=== PATIENT | female | born 1945 | race Caucasian/White ===

== ENCOUNTER 2016-08-06 03:10 | Inpatient (IN) | payer MEDICARE, BC ==
--- NOTE | ~2016-08-06 | DS ---
Discharge Summary [facility] [place] [address] [place]. [address] NAME: MASSIMO TOUSSAINT : 47 STATUS : DIS IN PAT#: [id number] AGE: 71 ADM/REG DATE : 08/06/16 MR#: [id number] REPORT SERV DATE: 08/24/16 DICTATED BY: ELIUD BEGUM DATE: 08/23/16 REPORT STATUS : Draft TRANSCRIBED BY: MEDARDO DATE: 08/23/16 Data Collection from hospitalization DISCHARGE DIAGNOSIS(ES): 1. Iqw-QI-iaygfbiju myocardial infarction. 2. Multi-vessel coronary artery disease, status post coronary artery bypass grafting. 3. Type 2 diabetes mellitus. 4. Debility. 5. History of spina bifida. 6. History of breast cancer status post bilateral mastectomy. 7. Chronic obstructive pulmonary disease. 8. Obesity. 9. Anxiety. 10.Chronic dysphagia. 11.History of myocardial infarction. CONSULTATIONS: Arnaud Olson Jr, MD; Edd Mcgee M.D. PROCEDURES PERFORMED: 1. Cardiac catheterization, 08/06/2016. 2. Median sternotomy, extracorporeal circulation. 3. Urgent coronary artery bypass grafting x3 with RODGERS to the LAD, reverse greater saphenous vein graft to the obtuse marginal #1, reverse saphenous vein graft to the posterior descending artery. 4. Transesophageal echocardiogram. 5. Endoscopic vein harvest from the right leg. 6. Sternal plating with Biomet SternaLock Mathieu, Prevena, 08/10/2016. 7. Carotid blood flow study, 08/09/2016. 8. Vein mapping of the bilateral lower extremities, 08/09/2016. 9. CT scan of the chest without contrast, 08/09/2016. MEDICATIONS: Vitamin C 1000 mg twice a day, aspirin 81 mg daily, Lipitor 40 mg daily, Cymbalta 30 mg daily, Duragesic 50 mcg topically every 72 hours, Neurontin 300 mg three times a day, Dilaudid 2 mg twice a day, Levemir FlexPen as instructed, NovoLog FlexPen as instructed, Hiprex 1 g twice a day, Lopressor 12.5 mg every 12 hours, Prilosec 20 mg at bedtime, MiraLAX powder one packet daily, Nolvadex 20 mg daily, oral zinc 220 mg daily, Tylenol 650 mg every four hours as needed, Mylanta 30 mL every four hours as needed, Xanax 0.5 mg three times a day as needed, Dulcolax 10 mg per rectum as needed, dextrose 25 mL IV as needed, glucagon as instructed, glucose tablets three tablets as needed, milk of magnesia 30 mL at bedtime as needed, Movantik 25 mg at 9 a.m. as needed, nitroglycerin 0.4 mg sublingually every five minutes as needed and as instructed, Roxicodone as instructed, Flomax one tablet twice a day, Macrobid 100 mg twice a day, Movantik 25 mg daily as needed, lisinopril 2.5 mg daily. CONDITION AT DISCHARGE: Stable. DISPOSITION: The patient was discharged to [facility] on an 1800-calorie cardiac/diabetic diet with activities as instructed. She would follow up with Dr. Puga Discharge Summary [address] [address] NAME: MASSIMO TOUSSAINT : 47 STATUS : DIS IN PAT#: [id number] AGE: 71 ADM/REG DATE : 08/06/16 MR#: [id number] REPORT SERV DATE: 08/24/16 DICTATED BY: ELIUD BEGUM DATE: 08/23/16 REPORT STATUS : Draft TRANSCRIBED BY: MEDARDO DATE: 08/23/16 Arely one month following discharge. She would follow up with me four weeks following discharge. HOSPITAL COURSE: This is a 71-year-old female, who has a very complex past medical history. She presented to the hospital and was found to have elevated troponin, chest pain, ischemic ECG, and dyspnea. The patient was seen by Dr. Edd Mcgee. He last saw the patient one year ago at the [facility]. The patient has very severe chronic debility in the setting of spina bifida. She has had multiple spine surgeries in the past. She has a walker and is wheelchair dependent. She does have chronic pain syndrome and is on high dose of Dilaudid and fentanyl. She is a breast cancer survivor since 2012. She has a history of COPD and some chronic dyspnea. The patient suffered a way-UO-msodfgdhq myocardial in 2013 that her nuclear cardiac stress test was negative in February of 2016 with an ejection fraction of 65% and moderate left ventricular hypertrophy. Over past two weeks, she has had severe progressive dyspnea. She was diagnosed with bronchitis and treated with unknown antibiotic medications. She developed both exertional and nonexertional severe substernal chest pressure over the past week with minimal activity and radiation to both arms. She saw her primary care physician and underwent a steroid injection into the joints of both hands. Three days prior to this admission, she noticed that her sugars are being going up more than 300. She presented to the emergency room and was found to have elevated troponin of 1.9 and a glucose of 310. It was felt that she would need to undergo a cardiac catheterization. She was admitted to the hospital for further evaluation and treatment. Upon admission, she was started on intravenous heparin. She denied any recent lower extremity edema, palpitations, or syncope. She does have chronic debility and chronic pain syndrome. We would follow her cardiac enzymes closely and get an echocardiogram. She was taken to the cardiac hatchery laborer by Dr. Jennifer Martínez where she underwent the above- mentioned procedure. She tolerated this well and there were no complications. She was found to have severe multivessel coronary artery disease including a 90-95% tubular ostial stenosis of the LAD with sequential 40-50% stenosis distally and also 99% ostial stenosis of the left circumflex with 95% ostial stenosis to the superior branch. Her RCA was a medium caliber vessel with 60% midvessel stenosis. Her ejection fraction on a stress test in 2016 was around 65%. It was felt that she would need to undergo coronary artery bypass grafting. She has had a yoz-EV-daleuwhmh myocardial infarction. She was seen in consultation by Dr. Arnaud Olson Jr, regarding medical management, glycemic control, and bronchitis. The patient has a history of spina bifida and has had corrected spine surgery for repair of the spina bifida. She also had cervical spine surgery from which she has suffered chronic dysphagia. She does have swallow precautions. The patient said about three weeks previously, she had developed chest pain and shortness of breath with exertion. She also had a cough initially with white phlegm. About one week prior to this admission, she developed blood in the sputum and had gone to her primary care provider and had been given antibiotics and Mucinex. She did improve some; however, she continued to have chest pain and shortness of breath with exertion. The hemoptysis resolved in the interim. She said that her breathing was now better. She says that she coughs when she eats some time. Her troponin I had been 5.45. She was felt to have poorly controlled type 2 diabetes mellitus. She was on Lantus and sliding scale insulin. Sliding scale insulin was increased to level 2. Hemoglobin A1c was going to be checked and we would adjust her basal insulin as needed. The following day, she had no chest pain or dyspnea. She was transferred to the cardiac Discharge [address] [address] NAME: MASSIMO TOUSSAINT : 47 STATUS : DIS IN PAT#: [id number] AGE: 71 ADM/REG DATE : 08/06/16 MR#: [id number] REPORT SERV DATE: 08/24/16 DICTATED BY: ELIUD BEGUM DATE: 08/23/16 REPORT STATUS : Draft TRANSCRIBED BY: MEDARDO DATE: 08/23/16 floor. Echocardiogram was performed. She was evaluated by Physical Therapy. She had no new complaints. On the , she had no dyspnea or chest pain. She was in a sinus rhythm. Echocardiogram revealed ejection fraction 55% and mild mitral regurgitation. Levemir was increased as well as Aspart. Hemoglobin A1c was 7.6. Speech/Language Pathology performed a bedside swallow study. Aspiration precautions were in place. On the , she underwent a carotid blood flow study as well as vein mapping of the bilateral lower extremities. CT scan of the chest without contrast was also performed. Blood pressure was controlled. Levemir was continued as well as level 2 sliding scale insulin. Aspart was discontinued. On 09/07/2016, she was taken to the operating room where she underwent the above-mentioned procedure. She tolerated this well. There were no complications. On postop day #1, she complained of pain. She remained on an insulin drip. IV medication was given for her severe pain. She was in a normal sinus rhythm. She had no fevers or chills. The next day, she still complained of pain. Creatinine level was 0.8. We encouraged her to increase her activity. Levemir dose was increased. Macrobid was stopped. She continued to progress. She seemed to be doing better. She was up sitting in a chair. She was more alert. It was felt that she would need long rehabilitation. She said she was sleeping well. Levemir was increased. She was re-evaluated by Physical Therapy. She did complain of some sternotomy pain. She had trace lower extremity edema. Aspirin, Plavix, and atorvastatin were continued. Discharge planning was performed. She was mobilizing well. She was going to remain on Plavix for life. She was ambulating with cardiac rehab. MANJU inhibitor was added. On 08/17/2016, her evening Levemir was decreased. She had no new issues. She said she felt well. She had no chest pain. Discharge instructions were given. Due to her improved and stable condition, she was discharged to [facility] with the above-stated instructions. Information collected by: Diane Mendoza I submit the above information as my discharge summary. TG/MODRocio Eliud Begum MD / [id number] CC: Lenora Tapia MD
--- NOTE | ~2016-08-06 | CN ---
Consultation Report [facility] [address] [place]. [address] NAME: MASSIMO TOUSSAINT : 47 STATUS : ADM Junior PAT#: [id number] AGE: 71 ADM/REG DATE : 08/06/16 MR#: [id number] REPORT SERV DATE: 08/06/16 DICTATED BY: HARSHA CROFT DATE: 08/06/16 REPORT STATUS : Draft TRANSCRIBED BY: MODL DATE: 08/06/16 CONSULT REPORT DATE OF CONSULTATION: 08/06/2016 REASON FOR CONSULTATION: Multivessel coronary artery disease. REQUESTING PHYSICIAN: Jennifer Martínez M.D. HISTORY OF PRESENT ILLNESS: This is a pleasant 71-year-old female with complicated past medical history including coronary artery disease, possible COPD, type 2 diabetes mellitus, chronic dysphagia, and spina bifida with chronic disability. She also has a history of chronic upper extremity myelopathy and is wheelchair bound. She was admitted early this morning with chest pain, abnormal EKG, and dyspnea. Her troponin was mildly elevated around 1.9, but came back later at 5.5. She was taken for cardiac catheterization and found to have severe multivessel coronary artery disease including a 90-95% tubular ostial stenosis of the LAD with sequential 40-50% stenosis distally, was also at 99% ostial stenosis to her left circ with a 95% ostial stenosis to the superior branch. Her RCA is a medium caliber vessel with a 60% midvessel stenosis. No mention of ejection fraction, but ejection fraction per stress test in 2016, was around 65%. I spoke with Dr. Martínez over the phone regarding the plan of care and CT surgery was consulted for evaluation of CAB and a chronically ill and debilitated 71-year-old female. Currently, the patient is recovering from cardiac catheterization with no complaints of chest pain or shortness of breath while she is at rest. Her sister is with her at the bedside. PAST MEDICAL HISTORY: Significant for chronic pain syndrome, spina bifida with chronic debilitation, CAD likely COPD with obstructive sleep apnea and chronic exertional dyspnea, chronic dysphagia, type 2 diabetes mellitus, anxiety, obesity, breast cancer, status post bilateral mastectomy in 2012. PAST SURGICAL HISTORY: Bilateral mastectomy. FAMILY HISTORY: Reviewed and noncontributory. SOCIAL HISTORY: She is single. She lives with her niece. Denies any history of alcohol abuse, use of illicit drugs, or tobacco. ALLERGIES: SHE HAS MULTIPLE MEDICATION ALLERGIES INCLUDING TRICYCLIC COMPOUNDS, HYDANTOINS, NSAIDS, SULFA, STATINS, NIACIN, LORAZEPAM, PHENYTOIN, CARBAMAZEPINE, LEVOTHYROXINE, METHYLPREDNISONE, KETOPROFEN, AMITRIPTYLINE, NORTRIPTYLINE, TRAZODONE, SERTRALINE, KETOROLAC, PREGABALIN, MORPHINE, AND ADHESIVES. HOME MEDICATIONS: Xanax 0.5 mg p.o. three times a day as needed, amlodipine 5 mg p.o. twice a day, aspirin 81 mg per day, carvedilol 6.25 mg p.o. b.i.d., vitamin D 5000 units p.o. Consultation Report [address] [address] NAME: MASSIMO TOUSSAINT : 47 STATUS : ADM Junior PAT#: [id number] AGE: 71 ADM/REG DATE : 08/06/16 MR#: [id number] REPORT SERV DATE: 08/06/16 DICTATED BY: HARSHA CROFT DATE: 08/06/16 REPORT STATUS : Draft TRANSCRIBED BY: MEDARDO DATE: 08/06/16 daily, Cymbalta 30 mg p.o. daily, Duragesic patch 50 mcg topically every 72 hours, Diflucan 100 mg p.o. daily, fluticasone two sprays daily, Monurol 3 g per day, Neurontin 300 mg p.o. three times a day, Dilaudid 2 mg p.o. twice a day, NovoLog FlexPen per sliding scale, Levemir FlexPen 40 units subcu every morning and 50 units at bedtime, Prinivil 40 mg per day, magnesium chloride 64 mg per day, Hiprex 1 g p.o. twice a day, nitrofurantoin 100 mg p.o. twice a day as long-term therapy, Prilosec 20 mg p.o. daily, MiraLAX one packet p.o. daily, potassium chloride 10 mEq p.o. daily, tamoxifen 20 mg p.o. daily, and Movantik 25 mg p.o. daily as needed for constipation. REVIEW OF SYSTEMS: 12-point review of systems was obtained and is negative other than HPI. PHYSICAL EXAMINATION: VITAL SIGNS: From today; temperature 97.9, heart rate 66, blood pressure 127/61, respiratory rate 19, O2 saturation 97% on 2 L. GENERAL: Pleasant, obese female, in no acute distress. NEUROLOGIC: Alert and oriented x3. Pupils exhibit PERRLA. Generalized weakness worse in bilateral lower extremities, but significant weakness in bilateral upper extremities as well. LUNGS: Clear to auscultation bilaterally with normal effort. CARDIAC: S1, S2 with no murmurs, rubs, or gallops. ABDOMEN: Obese and nontender with active bowel sounds. EXTREMITIES: Free of cyanosis, clubbing, or edema. Pedal pulses present and equal bilaterally. LABORATORY DATA: White blood cell count 7.9, hemoglobin 10.5, hematocrit 32, platelets 150. Sodium 139, potassium 4.1, chloride 104, bicarbonate 23, BUN 13, creatinine 0.8, glucose 310. ASSESSMENT AND PLAN: This is a pleasant, but chronically debilitated, 71-year-old female with multiple comorbidities who was admitted with a blu-MU-bclnyfldv myocardial infarction and found to have three-vessel coronary artery disease as mentioned above, which seems to be amenable to coronary artery bypass grafting. I discussed the risk and benefits of surgery with her as well as risk scores as she has risk stratification for her and this particular surgery include overall mortality of 2.3% of morbidity and mortality of 16.8%, what I am not able to calculate is the patient's chronic debilitated state and there was concern that surgery could indeed make this worse. I discussed the possibility of prolonged hospitalization and even prolonged jail care with her and she would like to talk with her family prior to deciding about surgery. She would also like a chance to talk with Dr. Fonseca and I will arrange this afternoon after he has finished with surgery. For now, we will continue her supportive care. I updated Jannette Rinaldi, nurse practitioner, that the patient will return to [facility] after she is recovered from her cardiac catheterization. We would like to thank you for the consultation and look forward to participating in the care of Ms. Massimo Toussaint. Consultation Report [address] [address] NAME: MASSIMO TOUSSAINT : 47 STATUS : ADM Junior PAT#: [id number] AGE: 71 ADM/REG DATE : 08/06/16 MR#: [id number] REPORT SERV DATE: 08/06/16 DICTATED BY: HARSHA CROFT DATE: 08/06/16 REPORT STATUS : Draft TRANSCRIBED BY: VADIML DATE: 08/06/16 SEBASTIEN/MEDARDO Harsha Croft NP / [id number] CC: Lenora Tapia MD
--- NOTE | ~2016-08-06 | PRECARD ---
H&P [facility] [address] [facility] [place]. [address] NAME: MASSIMO TOUSSAINT : 47 STATUS : ADM Junior PAT#: [id number] AGE: 71 ADM/REG DATE : 08/06/16 MR#: [id number] REPORT SERV DATE: 08/06/16 DICTATED BY: ASHLEY FRANKLIN DATE: 08/06/16 REPORT STATUS : Draft TRANSCRIBED BY: MEDARDO DATE: 08/06/16 DATE OF ADMISSION: 08/06/2016 HISTORY OF PRESENT ILLNESS: The patient is 71 years old. The patient has a very complex past medical history, admitted to Cardiology Service last night for elevated troponin, chest pain, ischemic ECG, and dyspnea. I have seen this patient last time 1 year ago at the [facility]. The patient has severe chronic debility in the setting of spina bifida. Multiple spine surgeries in the past. She has a walker and wheelchair dependent. She is having chronic pain syndrome on high dose of Dilaudid and fentanyl. She also is a breast cancer survivor since 2012 and is followed by Dr. Worley. The patient has a history of COPD and some chronic dyspnea. She suffered a non-ST elevation VA in 2013, but her nuclear cardiac stress test was negative in 02/2016 with ejection fraction of 65% with moderate LVH. The patient reportedly over the last two weeks has severe progressive dyspnea. She was diagnosed with bronchitis and treated with unknown antibiotic medications and she also developed both exertional and nonexertional severe substernal chest pressure over the last week with minimal activity, radiating to both arms. She has seen a primary care physician and underwent a steroid injection into the joints of both hands, that is 3 days ago. She noted that her sugar has been going up more than 300. She presented to emergency room last night. Of note, she is single and lives with her extended family member. She was found to have elevated troponin 1.9 and glucose 310, was admitted to Cardiology Service. She still continues to have poorly defined, but less severe substernal chest pressure and mild dyspnea. She was started on intravenous heparin. The patient denied any lower extremity edema recently, palpitation or syncope. She has had chronic debility and chronic pain syndrome. She has been in the past several times in the [facility], but likely last time in 2013. PAST MEDICAL HISTORY: 1. Chronic dyspnea on exertion multifactorial etiology. 2. History of coronary artery disease with history of non-STEMI in 2014 and negative nuclear cardiac stress test for ischemia in 2016. 3. History of preserved systolic function with EF of 65% in 2016. She has moderate LVH. 4. Chronic debility, the patient is wheelchair bound. In the setting of spina bifida and multiple spine surgeries, and chronic upper extremity myelopathy. 5. History of bilateral mastectomy in 2012 for breast cancer followed by Dr. Worley. 6. Chronic dysphagia. 7. COPD. 8. Diabetes mellitus. 9. Obesity. 10.Anxiety. 11.History of ERCP in 1987. There are unknown results. SOCIAL HISTORY: The patient is single. She lives with her niece. She denies smoking, drinking, alcohol, or using street drugs. FAMILY HISTORY: Negative for sudden cardiac premature family. H&P [address] [address] NAME: MASSIMO TOUSSAINT : 47 STATUS : ADM Junior PAT#: [id number] AGE: 71 ADM/REG DATE : 08/06/16 MR#: [id number] REPORT SERV DATE: 08/06/16 DICTATED BY: ASHLEY FRANKLIN DATE: 08/06/16 REPORT STATUS : Draft TRANSCRIBED BY: MEDARDO DATE: 08/06/16 ALLERGIES: ALPRAZOLAM, AMITRIPTYLINE, KETOPROFEN, CARBAMAZEPINE, LORAZEPAM, SYNTHROID METHYLPREDNISOLONE, NSAIDS, NORTRIPTYLINE, PHENYTOIN, SERTRALINE, SULFA, TRAZODONE, TRICYCLIC, ANTI-DEPRESSANT. ALL OF THEM ARE LISTED ALLERGIES WITH UNKNOWN TYPE OF ALLERGY. HOME MEDICATIONS: Fentanyl patch 50 mcg/hour over 72 hours, hydromorphone 2 mg twice a day, slow magnesium 2 tablets in the morning and 2 in the evening, lisinopril 40 mg once a day, Amitiza as needed, tamoxifen 20 mg once a day, alprazolam 0.5 mg as needed, gabapentin 300 mg three times a day, aspirin 81 mg once a day, carvedilol 6.25 mg twice a day, fluoxetine 30 mg once a day, fluticasone as needed, insulin Levemir 50 units at bedtime and 40 units in the breakfast. PHYSICAL EXAMINATION: GENERAL: On physical exam elderly female chronically ill, in no acute distress. VITAL SIGNS: Blood pressure 153/64, heart rate 78, regular. LUNGS: Decreased breath sounds bibasilarly, but no crackles. ABDOMEN: Obese, distended, and nontender. HEART: S1, S2. No S3 or S4. LOWER EXTREMITIES: Decreased pedal pulses bilaterally, but no edema. GEN - No acute distress. Appears stated age. HEENT - Pupils reactive to light and accommodation. Moist mucosa membrane. NECK: No JVD. Normal carotid upstroke. No carotid bruits. COR: Normal S1, S2. No S3 or S4. No significant rub or murmurs. ABD: Soft, nontender, nondistended. EXT: No edema. Pedal pulses strong and equal bilaterally. SKIN: Warm with normal turgor. MS - No kyphosis. NEURO/PSY - Alert and oriented. Nonfocal. LABORATORY DATA: CBC remarkable for hemoglobin 10.5, glucose 310, electrolyte within normal limits. Troponin 1.9. Electrocardiogram revealed normal sinus rhythm at 83 beats per minute with signs of LVH. An old anteroseptal VA, which is unchanged, but new ischemic changes with [address]-segment depression in anterolateral leads. A chest x-ray is pending. ASSESSMENT AND PLAN: 1. Non ST elevation VA. 2. Dyspnea on exertion, acute on chronic with exertion of multifactorial etiology. 3. Chronic upper extremity myelopathy. There is a recent steroid injection. 4. Chronic debility. 5. Chronic pain syndrome. 6. Diabetes mellitus, poorly controlled. 7. History of breast cancer. 8. Spina bifida. Under the history, the patient has multiple medical problems. We will transfer her to monitor bed. We will continue with aspirin, beta-blockers, intravenous heparin, and MANUJ inhibitor. Based on the above, I am concerned that she may have H&P PRE [address] [address] NAME: MASSIMO TOUSSAINT : 47 STATUS : ADM Junior PAT#: [id number] AGE: 71 ADM/REG DATE : 08/06/16 MR#: [id number] REPORT SERV DATE: 08/06/16 DICTATED BY: ASHLEY FRANKLIN DATE: 08/06/16 REPORT STATUS : Draft TRANSCRIBED BY: MEDARDO DATE: 08/06/16 multivessel coronary artery disease, but due to the fact that she continues to have chest pain, we will plan to proceed with coronary arteriogram later today when her sugar will be better controlled. We will put her on sliding scale insulin and ask hospitalist to help us manage her multiple medical problems including recent bronchitis, pain syndrome for her chronic debility. We will also ask Physical Therapy to see her, she probably will need placement. We will plan for echocardiogram and follow her cardiac enzymes closely. She is full code. Multiple questions were answered. TYRA/VADIML Ashley Franklin M.D. / [id number] CC: Lenora Tapia MD
--- NOTE | ~2016-08-06 | OP ---
Record Of [facility] [address] [facility] [place]. [address] NAME: MASSIMO TOUSSAINT : 46 STATUS : ADM IN PAT#: [id number] AGE: 71 ADM/REG DATE : 08/06/16 MR#: [id number] REPORT SERV DATE: 08/10/16 DICTATED BY: ANDREE BEGUM DATE: 08/10/16 REPORT STATUS : Draft TRANSCRIBED BY: MODL DATE: 08/10/16 DATE OF PROCEDURE: 08/10/2016 REFERRING PHYSICIAN: Edd Mcgee M.D. SURGICAL DRESSING MAKER: Pawan Pike. ANESTHESIOLOGIST: Brendon Ybarra M.D. PREOPERATIVE DIAGNOSES: 1. Non-ST segment elevation myocardial infarction. 2. Three-vessel coronary artery disease. 3. Diabetes mellitus type 2. 4. Hypertension. 5. Spina bifida. 6. Chronic obstructive pulmonary disease. 7. Breast cancer. 8. Obesity. 9. Dysphagia. 10.Chronic debilitation. POSTOPERATIVE DIAGNOSES: 1. Non-ST segment elevation myocardial infarction. 2. Three-vessel coronary artery disease. 3. Diabetes mellitus type 2. 4. Hypertension. 5. Spina bifida. 6. Chronic obstructive pulmonary disease. 7. Breast cancer. 8. Obesity. 9. Dysphagia. 10.Chronic debilitation. OPERATION/PROCEDURE PERFORMED: 1. Median sternotomy. 2. Extracorporeal circulation. 3. Urgent coronary artery bypass grafting x3, left internal mammary artery, left anterior descending, reverse greater saphenous vein graft to obtuse marginal #1, reverse greater saphenous vein graft to posterior descending artery. 4. Transesophageal echo. 5. Endoscopic vein harvest of right leg. 6. Sternal plating with Biomet SternaLock Mathieu. 7. Prevena. COMPLICATIONS: None. Record Of [facility] [address] [facility] [place]. [address] NAME: MASSIMO TOUSSAINT : 46 STATUS : ADM IN PAT#: [id number] AGE: 71 ADM/REG DATE : 08/06/16 MR#: [id number] REPORT SERV DATE: 08/10/16 DICTATED BY: ANDREE BEGUM DATE: 08/10/16 REPORT STATUS : Draft TRANSCRIBED BY: MODL DATE: 08/10/16 POSTOPERATIVE CONDITION: Stable to CVICU. The patient was weaned from cardiopulmonary bypass on no inotropic support with atrial and ventricular pacing wires. Cross-clamp 69 was minutes, total cardiopulmonary bypass time was 86 minutes. TUBES: A 24-Marshallese Rolo to left pleural space. A 32-Marshallese straight anterior mediastinal chest tube. INTRAOPERATIVE FINDINGS: Nnamdi diffusely diseased coronary arteries, the vein was 5 to 6 mm, mammary was 2 mm. The superior division of the obtuse marginal #1 was totally intramyocardial, could not find the artery, looked for for approximately 15 minutes and dissecting out various portions of the myocardium could not find it. On transesophageal echo, there was trace MR, thick LVH. No AI. No . There was normal EF. There was preserved wall motion post bypass. DETAILS OF CARDIOPULMONARY BYPASS GRAFTIN. Grafts #1, RODGERS to left anterior descending was 1.75 mm extremely diffusely diseased target, very nnamdi disease circumferentially along the length of the LAD. 2. Graft #2, reverse greater saphenous vein graft to obtuse marginal #1. This was 2 mm. This was partially intramyocardial and was diffusely diseased. 3. Reverse greater saphenous vein graft to posterior descending artery. This was 1.75 mm with mild diffuse disease. All grafts had excellent pre and post protamine Doppler signals. DETAILS OF STERNAL PLATING: One 180 degree plate with four 14 mm screws was used in the manubrium. Two X plates with eight 14 mm screws were used, each on the body of the sternum. Eight sternal wires were placed in addition to the plates. INDICATION FOR PROCEDURE: The patient is a 71-year-old female with a long history of multiple medical problems with diffuse ostial LAD and circumflex disease. Risks, benefits, and alternatives were discussed with the patient including but not limited to, bleeding, infection, stroke, , heart attack, need for future operations. All questions were answered. STS risks were calculated and discussed with the patient. In addition, given the patient's chronic debilitation with spina bifida, prolonged postoperative course was discussed with the patient. She contemplated operation over the weekend and ultimately wanted to have coronary bypass. The patient was brought to the operating room. DESCRIPTION OF PROCEDURE: The patient was brought to the operating room and placed supine on the operating room table. After satisfactory induction of general endotracheal anesthesia, she was prepped and draped in the usual sterile fashion. Working simultaneously, endoscopic vein harvest was performed from the right leg and median sternotomy was performed. Skin and subcutaneous tissues were divided. Clavipectoral fascia was divided. The sternum was divided in the midline. Sternal retractor was placed. Thymic tissue was divided in the midline. Pericardium was opened in the midline and along the diaphragm. Targets were inspected, they were as mention in the findings. The Rultract retractor was placed and the internal mammary artery was harvested in a pedicle fashion from its takeoff from the subclavian vein to the bifurcation of the diaphragm. Systemic heparinization was achieved. After three minutes, the pedicle was clipped and divided at the bifurcation of the Record Of Operation [place] [id number] [facility] [place]. [address] NAME: MASSIMO TOUSSAINT : 46 STATUS : ADM IN [facility]#: [id number] AGE: 71 ADM/REG DATE : 08/06/16 MR#: [id number] REPORT SERV DATE: 08/10/16 DICTATED BY: ANDREE BEGUM DATE: 08/10/16 REPORT STATUS : Draft TRANSCRIBED BY: MEDARDO DATE: 08/10/16 diaphragm. It was infiltrated with papaverine. A 24-Marshallese Rolo was placed in the left pleural space and exteriorized. The Rultract retractor was removed. Sternal retractor was placed. Pericardial well was created. Ascending aortic cannulation was achieved through dual pursestring at the base of the innominate artery with a soft-flow cannula. A dual stage venous cannula was placed through pursestring in the right atrial appendage. Antegrade root vent cardioplegia tack was placed. Cardiopulmonary bypass was initiated after documentation of an adequate ACT. The targets were again inspected. The LAD was diffusely diseased. The obtuse marginal #1 was diffusely diseased and there was a diffuse disease in the right with a plaque at the origin of the PDA. The cross-clamp was brought up. Heart was arrested with cold antegrade cardioplegia for a total of 800 mL switching to intermittent aliquots every 15 to 20 minutes throughout the remainder of the cross clamp. The posterior descending artery was then bypassed with a reverse greater saphenous vein. The obtuse marginal #1 was then bypassed with a reverse greater saphenous vein graft, both of these were done with 8-0 Surgipro. The proximal grafts were then performed after creating a proximal aortotomy enlarging with a 4.5 mm punch, this was done with 6-0 Prolene. Vein markers were placed. The superior division of the obtuse marginal #1 was looked for for approximately 10 to 15 minutes. Various areas were scratched out on the heart, could not find the artery. Takeoff was very close to the AV groove and the obtuse marginal #1 was in the epicardial fat there and could not find the bifurcation. The mammary was then brought down through a wide V in the pericardium, it was cut to length and spatulated. The LAD was opened on what appeared to be a soft spot, however, it was diffusely diseased with posterior plaquing as well as some anterior plaquing. The LAD was anastomosed to the RODGERS using an 8-0 Surgipro. Bulldog was removed after completion of the anastomosis and there was excellent flow pre and post anastomosis and in the graft. Pedicle was tacked to the heart in two places and grafts were de-aired and cross-clamp was removed. Atrial and ventricular pacing wires were placed. The patient was able to be weaned from cardiopulmonary bypass. Protamine was administered. The patient was decannulated. All cannulation sites were oversewn with 4-0 Prolene. Hemostasis was achieved. The pericardium was loosely reapproximated over the ascending aorta and the right ventricle. The sternum was then reapproximated. Eight #6 sternal wires were used to close the sternum over a 32- Marshallese chest tube laid in the anterior mediastinum, this was exteriorized and anchored. After the sternum was reapproximated using the sternal wires, small pectoral flaps were established just to remove the pectoral muscle at the edge of the sternum. 180 degree plate was placed on the manubrium and secured with 14 mm screws. Two X plates were placed in between wires on the bottom of the sternum and secured with eight 14 mm screws a piece. Clavipectoral fascia was then reapproximated over the sternum using #1 StrataFix. The subcutaneous tissues were reapproximated using running #1 StrataFix. The skin and subcutaneous tissues were closed using 2-0 Quill. Prevena dressing was placed. The patient was transferred to CVICU in critical, stable condition. WMC/MODL Andree Begum MD Record Of Operation [address] [place]. [address] NAME: MASSIMO TOUSSAINT : 46 STATUS : ADM IN PAT#: [id number] AGE: 71 ADM/REG DATE : 08/06/16 MR#: [id number] REPORT SERV DATE: 08/10/16 DICTATED BY: ANDREE BEGUM DATE: 08/10/16 REPORT STATUS : Draft TRANSCRIBED BY: MODL DATE: 08/10/16 / [id number] CC: Andree Begum MD
--- NOTE | ~2016-08-06 | CN ---
Consultation Report [facility] [address] [place]. [address] NAME: MASSIMO TOUSSAINT : 46 STATUS : ADM IN PAT#: [id number] AGE: 71 ADM/REG DATE : 08/06/16 MR#: [id number] REPORT SERV DATE: 08/09/16 DICTATED BY: JR. OLSON WILLIAM JOHN DATE: 08/06/16 REPORT STATUS : Draft TRANSCRIBED BY: MEDARDO DATE: 08/06/16 DATE OF CONSULTATION: REASON FOR CONSULTATION: Medical management, glycemic control, bronchitis. HISTORY OF PRESENT ILLNESS: This is a 71-year-old white female, admitted by [facility] for chest pain, ischemic EKG changes, and elevated troponin. The patient was admitted by Dr. Mcgee with plan for cardiac catheterization. Today, I have been asked to assist with multiple medical problems as above. The patient has an extraordinarily long medical history. She has a history of spina bifida and has had corrective spine surgery for repair of spina bifida. She has also had a cervical spine surgery from which she has suffered chronic dysphagia. The patient has seen Speech and Language Pathology in the past and has swallow precautions. The patient says about three weeks ago, she developed chest pain and shortness of breath with exertion. She also had a cough, initially with white phlegm. About one week ago, she developed blood in the sputum and went to her primary care provider in [facility] and saw a nurse practitioner, named Kate, who gave her antibiotics and Mucinex. The patient improved some, however, she continued to have the chest pain and shortness of breath with exertion. The hemoptysis has resolved in the interim. She denies fevers currently. She says she is breathing better now. She does say she coughs when she eat sometimes. PAST MEDICAL HISTORY: Includes: 1. Spina bifida with repair. 2. Chronic debility, wheelchair-bound. 3. Coronary artery disease with a history of myocardial infarction in 2013. 4. History of C-spine surgery with chronic dysphagia since. 5. History of breast cancer, status post bilateral mastectomy in 2012, on tamoxifen. 6. Chronic dyspnea on exertion. 7. Reported history of COPD, although the patient denies this. 8. Diabetes mellitus type 2. 9. Left total hip replacement. 10.Bilateral total knee replacement. 11.History of nephrostomy tubes. 12.History of ileal conduit/cystectomy secondary to complications of spina bifida. 13.Obesity. 14.Anxiety. 15.Hysterectomy. 16.Cholecystectomy. 17.Bilateral carpal tunnel syndrome for which she has had steroid injection. MEDICATIONS: Include: 1. Duragesic 50 mcg strength changing every 72 hours. 2. Dilaudid 2 mg orally twice a day. Consultation Report [address] [place]. [address] NAME: MASSIMO TOUSSAINT : 46 STATUS : ADM IN PAT#: [id number] AGE: 71 ADM/REG DATE : 08/06/16 MR#: [id number] REPORT SERV DATE: 08/09/16 DICTATED BY: JR. OLSON WILLIAM JOHN DATE: 08/06/16 REPORT STATUS : Draft TRANSCRIBED BY: MEDARDO DATE: 08/06/16 3. Slow-Mag 2 g in the morning and in the evening. 4. Lisinopril 40 daily. 5. Tamoxifen 20 daily. 6. Neurontin 300 t.i.d. 7. Aspirin 81 daily. 8. Coreg 6.25 b.i.d. 9. Fluoxetine 30 daily. 10.Levemir 40 units in the morning and 50 units at night. ALLERGIES: XANAX, ELAVIL, KETOPROFEN, CARBAMAZEPINE, ATIVAN, SYNTHROID, METHYLPREDNISOLONE, NSAIDS, NORTRIPTYLINE, DILANTIN, SERTRALINE, SULFA, TRAZODONE, AND TRICYCLIC ANTIDEPRESSANTS. FAMILY HISTORY: Mother at age 48 of heart aneurysm. Father in his 60s of a myocardial infarction. SOCIAL HISTORY: Lives in [place] with her niece. She is single. She denies tobacco, alcohol, or illicit drugs. Used to work at [employer]. REVIEW OF SYSTEMS: Negative in all systems reviewed, except did admit to fevers and chills last week and headache for the last three days. Decreased visual acuity, sore throat, chest pain and shortness of breath as above, hemoptysis, diarrhea last week, cough as above. PHYSICAL EXAMINATION: VITAL SIGNS: Temperature 98.4, blood pressure 146/64, heart rate 79, respiratory rate 18. GENERAL: The patient was alert and oriented, in no acute distress. HEENT: Her pupils were equal, round, and reactive to light. Extraocular motions were intact. Sclerae were anicteric. Oropharynx was clear. NECK: Supple. There was no jugular venous distention, thyromegaly, or bruits. LUNGS: Clear to auscultation without crackles or wheezes. There was symmetrical chest rise. No significant kyphosis or thoracic deformity. CARDIOVASCULAR: S1 and S2 without gallop, murmur, or rub. Point of maximal impulse is nonpalpable. ABDOMEN: Soft, obese, nontender. Bowel sounds were present. There was ileostomy in the left lower abdomen with pink ostomy, looks healthy. EXTREMITIES: Showed no clubbing, cyanosis, edema. There was wasted musculature in the bilateral lower extremities. NEUROLOGIC: Cranial nerves II through XII were intact. Upper extremity strength and sensation were full and equal throughout. LYMPH NODE SURVEY: Negative in cervical and supraclavicular regions. PSYCHIATRIC: Mood and affect were appropriate. Slow to respond to questions, but was appropriate. LABORATORY DATA: White count 7.9, hemoglobin 10.5, platelets 150, differential included 68% Consultation Report [address] [address] NAME: MASSIMO TOUSSAINT : 46 STATUS : ADM IN PAT#: [id number] AGE: 71 ADM/REG DATE : 08/06/16 MR#: [id number] REPORT SERV DATE: 08/09/16 DICTATED BY: JR. OLSON WILLIAM JOHN DATE: 08/06/16 REPORT STATUS : Draft TRANSCRIBED BY: MEDARDO DATE: 08/06/16 neutrophils. Sodium 139, potassium 4.1, chloride 104, bicarbonate 23, BUN 13, creatinine 0.8, glucose 310, magnesium 1.6, calcium 8.3, LDL of 49, HDL of 41, troponin I of 5.45. Chest x-ray was without infiltrate. ASSESSMENT AND PLAN: A 71-year-old white female with: 1. Poorly controlled diabetes mellitus type 2. She is on Lantus and sliding scale. We will increase her sliding scale to level 2. Check hemoglobin A1c and adjust her basal insulin as needed. 2. Chronic dyspnea on exertion for the past three weeks, diagnosed with bronchitis recently. This certainly could be chronic aspiration syndrome; therefore, we will ask Speech and Language Pathology to evaluate. There was no evidence of pneumonia, so withhold antibiotics. Currently, we will place her on Mucinex and albuterol nebulizers q.6 hours and p.r.n. as she did improve with this in the ambulance. 3. Ygi-OB-fmszpxzbr myocardial infarction. Management per Cardiology. 4. Spina bifida. The patient is wheelchair bound. 5. History of breast cancer, status post bilateral mastectomy, on chronic tamoxifen followed by Dr. Worley. 6. Chronic dysphagia. Speech evaluation as above. 7. Obesity. We will follow this patient with you. Thank you for allowing us to participate in the care of this patient. WJF/MODL Arnaud Olson Jr, MD / [id number] CC: Lenora Tapia MD
[2016-08-06 03:06] LABS: BASOPHILS 0.1 %; BASOPHILS ABSOLUTE 0.01 10/3/uL (0.0-0.16); EOSINOPHILS 0.5 %; EOSINOPHILS ABSOLUTE 0.04 10/3/uL (0.0-0.53); ER CBC TAT 0 Hrs 09 Mins; HEMATOCRIT 31.9 % (36.0-48.0); HEMOGLOBIN 10.5 g/dL (12.0-16.0); IMMATURE GRANULOCYTES 0.1 %; IMMATURE GRANULOCYTES ABSOLUTE 0.01 10/3/uL (0.0-0.11); LYMPHOCYTES 17.3 %; LYMPHOCYTES ABSOLUTE 1.37 10/3/uL (0.67-4.30); MANUAL DIFF NO %; MEAN CORPUS HGB CONC 32.9 g/dL (32.0-36.0); MEAN CORPUSCULAR HEMOGLOB 28.1 pg (26.0-34.0); MEAN CORPUSCULAR VOLUME 85.3 fL (80-100); MEAN PLATELET VOLUME 10.8 fL (9.2-13.0); MONOCYTES 13.7 %; MONOCYTES ABSOLUTE 1.08 10/3/uL (0.21-1.20); NEUTROPHILS 68.3 %; PLATELET COUNT 150 10/3/uL (150-400); RED CELL COUNT 3.74 10/6/uL (4.0-5.6); WHITE BLOOD CELLS 7.9 10/3/uL (4.5-10.5)
[~2016-08-06 03:10] MED LIST: *UNABLE3; ACIDOPHILU1; ACTOS45 PO; AMB10 PO; AMB5 PO; ASAB PO; ATEN25 PO; ATEN50 PO; B COMPLETE PO; CIPRO PO; COREG6 PO; CYMBALTA20 PO; CYMBALTA30 PO; DIL2TAB; DIL2TAB PO; DIL4TAB PO; DSS; DSS PO; DURA12 TOP; DURA25 TOP; DURA50 TOP; FISH-EPA1000 MG PO; FLONASE NAS; FLUCON1 PO; FLUCON150 PO; GLUCOPHAGE1000 MG PO; GLUCPH PO; HEMOCYTET PO; HUMULIN R1 ML SC; HUMULIN SC; INSNOVR SC; IRON PO; IRON325 MG PO; K-TABS10 MEQ PO; KDUR20 PO; KLOR-CON 1010 MEQ PO; KLOR-CON M1010 MEQ PO; KLOR-CON M2020 MEQ PO; L20 PO; LANTUS SC; LEVEMFLXPN SC; LEVEMIR SC; LISINOPRIL40 MG PO; LOFIB160 PO; LOFIBRA160 MG PO; LOP25 PO; LOP50 PO; LORCET PO; MACROBID PO; MAGOX4 PO; MAXIMUM D3 PO; METOPROLOL PO; MICRO-K10 MEQ; MIRALAX POWDER1 PKT PO; MIRALAXPKT PO; MONUROL PO; MONUROL POWDER 33 GM PO; MOTRIN IB200 MG PO; MOVANTIK 25MG; MOVANTIK 25MG PO; MULTIPLE VIT PO; MULTIVIT/MIN PO; MYCOSTATAB PO; NEUR300 PO; NEUR400 PO; NOLV10 PO; NORV5 PO; NOVOLOG SC; NOVOPEN SC; NYS500UDL OR; NYS500UDL PO; NYS500UDL PO/LIQ; PCET PO; PEP20 PO; PERCOCET1 TA2 PO; PERCOCET1 TA4 PO; PRILO; PRILO PO; PRIN10 PO; PROMEGA PO; PROTONIX PO; PROZAC PO; SENOKOTS PO; SENTAB PO; SEROQUEL50 MG PO; SLOWMAG PO; TAMOXIFEN PO; TAMOXIFEN20 M1 PO; TEARS NATURA OPH; TRICOR145 PO; VIT B COMPLEX PO; VITAMIN B PO; VITAMIN C100 MG PO; VITAMIN D1000 UNI1; VITAMIN D1000 UNI1 PO; VITAMIN D3 PO; VITAMIN D31000 UNIT PO; VITAMIN D400 UNI1 PO; VITC500 PO; X25 PO; X5 PO; ZYDONE1 TA2 PO; [UNRECOGNIZED DRUG - OTHER]; [UNRECOGNIZED DRUG - OTHER]; [UNRECOGNIZED DRUG - OTHER] PO; [UNRECOGNIZED DRUG - REMARK]
[2016-08-06 03:15] LABS: INTERNATIONAL NORMAL RATI 1.3 UNITS (-); PARTIAL THROMBO TIME 28.3 SEC (22.5-37.2); PROTIME (NOT ORD) 16.4 SEC (12.0-14.5)
[2016-08-06 03:44] LABS: BUN (BLOOD UREA NITROGEN) 13 MG/DL (6-23); CALCIUM, SERUM 8.3 MG/DL (8.5-10.4); CHLORIDE, SERUM 104 MMOL/L (96-112); CO2 (CARBON DIOXIDE) 23 MMOL/L (24-34); CREATININE 0.84 MG/DL (0.55-1.02); GFR AFRICAN AMERICAN 82 ML/MIN (>=60); GFR NON AFRICAN AMERICAN 70 ML/MIN (>=60); POTASSIUM, SERUM 4.1 MMOL/L (3.5-5.3); SODIUM, SERUM 139 MMOL/L (135-148)
[2016-08-06 03:47] LABS: CHEST PAIN PROFILE TAT 0 Hrs 50 Mins; GLUCOSE, SERUM 310 MG/DL (60-99); TROPONIN I 1.92 NG/ML (<0.05)
[2016-08-06] MEDS ORDERED: NOVOPEN SC (09:21)
[2016-08-06] MEDS ORDERED: D 5000 PO (09:23)
[2016-08-06] MEDS ORDERED: ASAB PO (09:24)
[2016-08-06] MEDS ORDERED: HIPREX1 GM PO (09:27)
[2016-08-06] MEDS ORDERED: SLOWMAG PO (09:28)
[2016-08-06 09:36] LABS: CHOL/HDL RATIO(NOT ORDER) 2.5 (0-5)
[2016-08-06 09:37] LABS: TROPONIN I 5.45 NG/ML (<0.05)
[2016-08-06 10:33] LABS: ASCORBIC ACID (UR NOT ORDER) NEG (NEG); BILIRUBIN, URINE NEGATIVE (NEG); KETONE, URINE NEGATIVE (NEG); LEUKOCYTE ESTERASE(NOT OR TRACE (NEG); WBC (NOT ORDERED) (RFLEX) 15 (0-5)
[2016-08-07 06:54] LABS: BASOPHILS 0.5 %; BASOPHILS ABSOLUTE 0.02 10/3/uL (0.0-0.16); EOSINOPHILS 2.4 %; EOSINOPHILS ABSOLUTE 0.09 10/3/uL (0.0-0.53); HEMATOCRIT 30.6 % (36.0-48.0); HEMOGLOBIN 9.9 g/dL (12.0-16.0); LYMPHOCYTES 26.3 %; LYMPHOCYTES ABSOLUTE 0.99 10/3/uL (0.67-4.30); MEAN CORPUS HGB CONC 32.4 g/dL (32.0-36.0); MEAN CORPUSCULAR HEMOGLOB 28.6 pg (26.0-34.0); MEAN PLATELET VOLUME 10.6 fL (9.2-13.0); MONOCYTES 15.7 %; MONOCYTES ABSOLUTE 0.59 10/3/uL (0.21-1.20); NEUTROPHILS 55.1 %; NEUTROPHILS ABSOLUTE 2.07 10/3/uL (2.02-8.40); PLATELET COUNT 109 10/3/uL (150-400); RED CELL COUNT 3.46 10/6/uL (4.0-5.6)
[2016-08-07 06:55] LABS: MANUAL DIFF NO %; MEAN CORPUSCULAR VOLUME 88.4 fL (80-100); WHITE BLOOD CELLS 3.8 10/3/uL (4.5-10.5)
[2016-08-07 07:03] LABS: BUN (BLOOD UREA NITROGEN) 13 MG/DL (6-23); CALCIUM, SERUM 8.3 MG/DL (8.5-10.4); CHLORIDE, SERUM 107 MMOL/L (96-112); CO2 (CARBON DIOXIDE) 24 MMOL/L (24-34); CREATININE 0.58 MG/DL (0.55-1.02); GFR AFRICAN AMERICAN 108 ML/MIN (>=60); GFR NON AFRICAN AMERICAN 93 ML/MIN (>=60); POTASSIUM, SERUM 4.1 MMOL/L (3.5-5.3); SODIUM, SERUM 141 MMOL/L (135-148)
[2016-08-07 07:04] LABS: GLUCOSE, SERUM 125 MG/DL (60-99)
[2016-08-07 08:59] LABS: BASOPHILS 0.3 %; BASOPHILS ABSOLUTE 0.01 10/3/uL (0.0-0.16); EOSINOPHILS 1.7 %; EOSINOPHILS ABSOLUTE 0.06 10/3/uL (0.0-0.53); HEMATOCRIT 30.3 % (36.0-48.0); HEMOGLOBIN 9.8 g/dL (12.0-16.0); IMMATURE GRANULOCYTES 0.3 %; IMMATURE GRANULOCYTES ABSOLUTE 0.01 10/3/uL (0.0-0.11); LYMPHOCYTES ABSOLUTE 0.88 10/3/uL (0.67-4.30); MANUAL DIFF NO %; MEAN CORPUS HGB CONC 32.3 g/dL (32.0-36.0); MEAN CORPUSCULAR HEMOGLOB 27.8 pg (26.0-34.0); MEAN CORPUSCULAR VOLUME 86.1 fL (80-100); MEAN PLATELET VOLUME 10.6 fL (9.2-13.0); MONOCYTES 17.3 %; MONOCYTES ABSOLUTE 0.61 10/3/uL (0.21-1.20); NEUTROPHILS 55.4 %; NEUTROPHILS ABSOLUTE 1.95 10/3/uL (2.02-8.40); PLATELET COUNT 109 10/3/uL (150-400); RBC DISTRIBUTION WIDTH 14.2 % (12.0-16.0); RED CELL COUNT 3.52 10/6/uL (4.0-5.6); WHITE BLOOD CELLS 3.5 10/3/uL (4.5-10.5)
[2016-08-07 09:20] LABS: CHOL/HDL RATIO(NOT ORDER) 2.5 (0-5)
[2016-08-08 08:06] LABS: BASOPHILS 0.3 %; BASOPHILS ABSOLUTE 0.01 10/3/uL (0.0-0.16); EOSINOPHILS 2.7 %; HEMOGLOBIN 10.5 g/dL (12.0-16.0); LYMPHOCYTES ABSOLUTE 0.71 10/3/uL (0.67-4.30); MEAN CORPUS HGB CONC 31.3 g/dL (32.0-36.0); MEAN CORPUSCULAR HEMOGLOB 27.3 pg (26.0-34.0); MEAN CORPUSCULAR VOLUME 87.2 fL (80-100); MEAN PLATELET VOLUME 10.4 fL (9.2-13.0); MONOCYTES 17.2 %; MONOCYTES ABSOLUTE 0.64 10/3/uL (0.21-1.20); NEUTROPHILS 60.8 %; NEUTROPHILS ABSOLUTE 2.27 10/3/uL (2.02-8.40); PLATELET COUNT 103 10/3/uL (150-400); RBC DISTRIBUTION WIDTH 14.1 % (12.0-16.0); RED CELL COUNT 3.84 10/6/uL (4.0-5.6); WHITE BLOOD CELLS 3.7 10/3/uL (4.5-10.5)
[2016-08-08 08:07] LABS: HEMATOCRIT 33.5 % (36.0-48.0); MANUAL DIFF NO %
[2016-08-08 08:21] LABS: BUN (BLOOD UREA NITROGEN) 12 MG/DL (6-23); CALCIUM, SERUM 8.5 MG/DL (8.5-10.4); CHLORIDE, SERUM 102 MMOL/L (96-112); CO2 (CARBON DIOXIDE) 25 MMOL/L (24-34); GFR AFRICAN AMERICAN 107 ML/MIN (>=60); GFR NON AFRICAN AMERICAN 92 ML/MIN (>=60); SODIUM, SERUM 137 MMOL/L (135-148)
[2016-08-08 08:23] LABS: GLUCOSE, SERUM 191 MG/DL (60-99)
[2016-08-09 05:29] LABS: BASOPHILS 0.3 %; BASOPHILS ABSOLUTE 0.01 10/3/uL (0.0-0.16); EOSINOPHILS 3.3 %; EOSINOPHILS ABSOLUTE 0.13 10/3/uL (0.0-0.53); HEMATOCRIT 30.9 % (36.0-48.0); HEMOGLOBIN 10.1 g/dL (12.0-16.0); LYMPHOCYTES 27.8 %; LYMPHOCYTES ABSOLUTE 1.11 10/3/uL (0.67-4.30); MEAN CORPUS HGB CONC 32.7 g/dL (32.0-36.0); MEAN CORPUSCULAR HEMOGLOB 28.6 pg (26.0-34.0); MEAN CORPUSCULAR VOLUME 87.5 fL (80-100); MEAN PLATELET VOLUME 10.3 fL (9.2-13.0); MONOCYTES 17.3 %; MONOCYTES ABSOLUTE 0.69 10/3/uL (0.21-1.20); NEUTROPHILS 51.3 %; NEUTROPHILS ABSOLUTE 2.06 10/3/uL (2.02-8.40); PLATELET COUNT 93 10/3/uL (150-400); RBC DISTRIBUTION WIDTH 14.1 % (12.0-16.0); RED CELL COUNT 3.53 10/6/uL (4.0-5.6)
[2016-08-09 05:42] LABS: BUN (BLOOD UREA NITROGEN) 10 MG/DL (6-23); CALCIUM, SERUM 8.6 MG/DL (8.5-10.4); CHLORIDE, SERUM 105 MMOL/L (96-112); CO2 (CARBON DIOXIDE) 26 MMOL/L (24-34); CREATININE 0.55 MG/DL (0.55-1.02); GFR AFRICAN AMERICAN 110 ML/MIN (>=60); GFR NON AFRICAN AMERICAN 95 ML/MIN (>=60); GLUCOSE, SERUM 166 MG/DL (60-99); POTASSIUM, SERUM 4.1 MMOL/L (3.5-5.3); SODIUM, SERUM 139 MMOL/L (135-148)
[2016-08-09 05:44] LABS: MANUAL DIFF NO %
[2016-08-10 05:12] LABS: BASOPHILS 0.2 %; BASOPHILS ABSOLUTE 0.01 10/3/uL (0.0-0.16); EOSINOPHILS 3.3 %; EOSINOPHILS ABSOLUTE 0.14 10/3/uL (0.0-0.53); HEMATOCRIT 33.5 % (36.0-48.0); HEMOGLOBIN 10.9 g/dL (12.0-16.0); LYMPHOCYTES 22.3 %; LYMPHOCYTES ABSOLUTE 0.96 10/3/uL (0.67-4.30); MANUAL DIFF NO %; MEAN CORPUS HGB CONC 32.5 g/dL (32.0-36.0); MEAN CORPUSCULAR HEMOGLOB 28.4 pg (26.0-34.0); MEAN CORPUSCULAR VOLUME 87.2 fL (80-100); MEAN PLATELET VOLUME 10.8 fL (9.2-13.0); MONOCYTES 16.7 %; MONOCYTES ABSOLUTE 0.72 10/3/uL (0.21-1.20); NEUTROPHILS 57.5 %; NEUTROPHILS ABSOLUTE 2.47 10/3/uL (2.02-8.40); PLATELET COUNT 117 10/3/uL (150-400); RBC DISTRIBUTION WIDTH 14.3 % (12.0-16.0); RED CELL COUNT 3.84 10/6/uL (4.0-5.6); WHITE BLOOD CELLS 4.3 10/3/uL (4.5-10.5)
[2016-08-10 05:18] LABS: INTERNATIONAL NORMAL RATI 1.2 UNITS (-); PROTIME (NOT ORD) 15.5 SEC (12.0-14.5)
[2016-08-10 05:45] LABS: A/G RATIO 0.6 (0.7-1.9); ALBUMIN 2.7 G/DL (3.5-5.0); BUN (BLOOD UREA NITROGEN) 13 MG/DL (6-23); CALCIUM, SERUM 8.5 MG/DL (8.5-10.4); CHLORIDE, SERUM 103 MMOL/L (96-112); CO2 (CARBON DIOXIDE) 27 MMOL/L (24-34); CREATININE 0.65 MG/DL (0.55-1.02); GFR AFRICAN AMERICAN 104 ML/MIN (>=60); GFR NON AFRICAN AMERICAN 90 ML/MIN (>=60); GLOBULIN 4.8 G/DL (2.5-4.1); GLUCOSE, SERUM 191 MG/DL (60-99); POTASSIUM, SERUM 4.3 MMOL/L (3.5-5.3); SGOT(AST) 32 U/L (5-40); SGPT(ALT) 28 U/L (5-65); SODIUM, SERUM 139 MMOL/L (135-148); TOTAL BILIRUBIN 0.4 MG/DL (0-1.2); TOTAL PROTEIN 7.5 G/DL (6.0-8.5)
[2016-08-10 05:53] LABS: ALKALINE PHOSPHATASE 95 U/L (45-117)
[2016-08-10 17:48] LABS: CARBOXYHEMOGLOBIN 0.3 % (0-3); HCO3 (ACTUAL BICARBONATE) 22.3 MEQ/L (23-27); HEMOBLOGIN CONTENT 11.3 G/DL (12-16); INSTRUMENT SERIAL # 11843; METHEMOGLOBIN 0.6 % (0-3); MODE SIMV; O2 CONTENT 15.8 VOL% (18-24); OPERATOR ID 19104; PCO2 (CO2 TENSION) 32 MMHG (35-45); PO2 (O2 TENSION) 159 MMHG (79-93); SAMPLE Arterial; TIDAL VOLUME 650 ML; pH 7.46 (7.37-7.43)
[2016-08-10 18:20] LABS: HEMATOCRIT 31.3 % (36.0-48.0); HEMOGLOBIN 10.3 g/dL (12.0-16.0); PLATELET COUNT 133 10/3/uL (150-400)
[2016-08-10 18:29] LABS: INTERNATIONAL NORMAL RATI 1.6 UNITS (-); PARTIAL THROMBO TIME 38.7 SEC (22.5-37.2)
[2016-08-10 18:33] LABS: BUN (BLOOD UREA NITROGEN) 15 MG/DL (6-23); CALCIUM, SERUM 8.3 MG/DL (8.5-10.4); CHLORIDE, SERUM 111 MMOL/L (96-112); CO2 (CARBON DIOXIDE) 25 MMOL/L (24-34); CREATININE 0.73 MG/DL (0.55-1.02); GFR AFRICAN AMERICAN 97 ML/MIN (>=60); GFR NON AFRICAN AMERICAN 83 ML/MIN (>=60); POTASSIUM, SERUM 4.4 MMOL/L (3.5-5.3); SODIUM, SERUM 145 MMOL/L (135-148)
[2016-08-10 18:34] LABS: GLUCOSE, SERUM 73 MG/DL (60-99)
[2016-08-10 18:45] LABS: FIBRINOGEN 214 MG/DL (230-462); PROTIME (NOT ORD) 18.7 SEC (12.0-14.5)
[2016-08-11 00:11] LABS: CARBOXYHEMOGLOBIN 0.3 % (0-3); DEVICE NC; HCO3 (ACTUAL BICARBONATE) 24.4 MEQ/L (23-27); HEMOBLOGIN CONTENT 10.3 G/DL (12-16); INSTRUMENT SERIAL # 11843; METHEMOGLOBIN 0.8 % (0-3); PCO2 (CO2 TENSION) 43 MMHG (35-45); PO2 (O2 TENSION) 100 MMHG (79-93); SAMPLE Arterial; pH 7.37 (7.37-7.43)
[2016-08-11 00:28] LABS: HEMATOCRIT 29.5 % (36.0-48.0); HEMOGLOBIN 9.5 g/dL (12.0-16.0)
[2016-08-11 00:40] LABS: BUN (BLOOD UREA NITROGEN) 16 MG/DL (6-23); CALCIUM, SERUM 8.1 MG/DL (8.5-10.4); CHLORIDE, SERUM 112 MMOL/L (96-112); CO2 (CARBON DIOXIDE) 24 MMOL/L (24-34); CREATININE 0.66 MG/DL (0.55-1.02); GFR AFRICAN AMERICAN 104 ML/MIN (>=60); GFR NON AFRICAN AMERICAN 90 ML/MIN (>=60); POTASSIUM, SERUM 4.4 MMOL/L (3.5-5.3); SODIUM, SERUM 145 MMOL/L (135-148)
[2016-08-11 00:43] LABS: GLUCOSE, SERUM 95 MG/DL (60-99)
[2016-08-11 03:25] LABS: HEMATOCRIT 29.2 % (36.0-48.0); HEMOGLOBIN 9.5 g/dL (12.0-16.0); MANUAL DIFF YES %; MEAN CORPUS HGB CONC 32.5 g/dL (32.0-36.0); MEAN CORPUSCULAR HEMOGLOB 28.5 pg (26.0-34.0); MEAN CORPUSCULAR VOLUME 87.7 fL (80-100); MEAN PLATELET VOLUME 10.4 fL (9.2-13.0); PLATELET COUNT 147 10/3/uL (150-400); RBC DISTRIBUTION WIDTH 14.7 % (12.0-16.0); RED CELL COUNT 3.33 10/6/uL (4.0-5.6); WHITE BLOOD CELLS 12.9 10/3/uL (4.5-10.5)
[2016-08-11 03:41] LABS: BUN (BLOOD UREA NITROGEN) 17 MG/DL (6-23); CALCIUM, SERUM 7.9 MG/DL (8.5-10.4); CHLORIDE, SERUM 113 MMOL/L (96-112); CO2 (CARBON DIOXIDE) 25 MMOL/L (24-34); CREATININE 0.63 MG/DL (0.55-1.02); GFR AFRICAN AMERICAN 105 ML/MIN (>=60); GFR NON AFRICAN AMERICAN 91 ML/MIN (>=60); GLUCOSE, SERUM 102 MG/DL (60-99); POTASSIUM, SERUM 4.3 MMOL/L (3.5-5.3); SODIUM, SERUM 149 MMOL/L (135-148)
[2016-08-11 03:45] LABS: BAND NEUTROPHILS 1 %; BASOPHILS 1 %; BASOPHILS ABSOLUTE (CALC) 0.13 10/3/uL (0.0-0.16); LYMPHOCYTES 2 %; LYMPHOCYTES ABSOLUTE (CALC) 0.26 10/3/uL (0.67-4.30); MONOCYTES 7 %; NEUTROPHILS ABSOLUTE (CALC) 11.61 10/3/uL (2.02-8.40); PLATELET ESTIMATE SLT DEC (ADEQUATE); RBC MORPHOLOGY NORM (NORMAL); SEGMENTED NEUTROPHIL (0) 89 %; TOTAL NUCLEATED CELLS 100
[2016-08-11 19:09] LABS: HEMATOCRIT 27.8 % (36.0-48.0); HEMOGLOBIN 8.9 g/dL (12.0-16.0)
[2016-08-12 04:06] LABS: BASOPHILS 0.3 %; BASOPHILS ABSOLUTE 0.04 10/3/uL (0.0-0.16); EOSINOPHILS 0.9 %; EOSINOPHILS ABSOLUTE 0.12 10/3/uL (0.0-0.53); HEMATOCRIT 26.9 % (36.0-48.0); HEMOGLOBIN 8.5 g/dL (12.0-16.0); IMMATURE GRANULOCYTES 0.2 %; IMMATURE GRANULOCYTES ABSOLUTE 0.02 10/3/uL (0.0-0.11); LYMPHOCYTES 19.2 %; LYMPHOCYTES ABSOLUTE 2.54 10/3/uL (0.67-4.30); MEAN CORPUS HGB CONC 31.6 g/dL (32.0-36.0); MEAN CORPUSCULAR HEMOGLOB 27.7 pg (26.0-34.0); MEAN CORPUSCULAR VOLUME 87.6 fL (80-100); MEAN PLATELET VOLUME 10.4 fL (9.2-13.0); MONOCYTES 16.4 %; MONOCYTES ABSOLUTE 2.17 10/3/uL (0.21-1.20); NEUTROPHILS ABSOLUTE 8.32 10/3/uL (2.02-8.40); PLATELET COUNT 157 10/3/uL (150-400); RBC DISTRIBUTION WIDTH 15.7 % (12.0-16.0); RED CELL COUNT 3.07 10/6/uL (4.0-5.6); WHITE BLOOD CELLS 13.2 10/3/uL (4.5-10.5)
[2016-08-12 04:10] LABS: MANUAL DIFF NO %
[2016-08-12 04:19] LABS: ALBUMIN 2.7 G/DL (3.5-5.0); CALCIUM, SERUM 7.8 MG/DL (8.5-10.4); CHLORIDE, SERUM 104 MMOL/L (96-112); CO2 (CARBON DIOXIDE) 24 MMOL/L (24-34); GFR AFRICAN AMERICAN 87 ML/MIN (>=60); GFR NON AFRICAN AMERICAN 75 ML/MIN (>=60); POTASSIUM, SERUM 4.4 MMOL/L (3.5-5.3)
[2016-08-12 04:20] LABS: BUN (BLOOD UREA NITROGEN) 23 MG/DL (6-23); GLUCOSE, SERUM 208 MG/DL (60-99); PHOSPHORUS, SERUM 3.1 MG/DL (2.5-4.5); SODIUM, SERUM 138 MMOL/L (135-148)
[2016-08-13 04:38] LABS: A/G RATIO 0.7 (0.7-1.9); ALBUMIN 2.6 G/DL (3.5-5.0); CALCIUM, SERUM 7.9 MG/DL (8.5-10.4); CHLORIDE, SERUM 102 MMOL/L (96-112); CO2 (CARBON DIOXIDE) 25 MMOL/L (24-34); CREATININE 1.09 MG/DL (0.55-1.02); GFR AFRICAN AMERICAN 60 ML/MIN (>=60); GFR NON AFRICAN AMERICAN 51 ML/MIN (>=60); GLOBULIN 3.9 G/DL (2.5-4.1); GLUCOSE, SERUM 183 MG/DL (60-99); POTASSIUM, SERUM 4.3 MMOL/L (3.5-5.3); SGOT(AST) 35 U/L (5-40); SGPT(ALT) 21 U/L (5-65); SODIUM, SERUM 136 MMOL/L (135-148); TOTAL BILIRUBIN 0.6 MG/DL (0-1.2); TOTAL PROTEIN 6.5 G/DL (6.0-8.5)
[2016-08-13 04:40] LABS: ALKALINE PHOSPHATASE 61 U/L (45-117); BUN (BLOOD UREA NITROGEN) 31 MG/DL (6-23)
[2016-08-13 07:33] LABS: HEMATOCRIT 24.6 % (36.0-48.0); HEMOGLOBIN 8.2 g/dL (12.0-16.0); MANUAL DIFF YES %; MEAN CORPUS HGB CONC 33.3 g/dL (32.0-36.0); MEAN CORPUSCULAR HEMOGLOB 29.3 pg (26.0-34.0); MEAN CORPUSCULAR VOLUME 87.9 fL (80-100); MEAN PLATELET VOLUME 10.5 fL (9.2-13.0); PLATELET COUNT 171 10/3/uL (150-400); RBC DISTRIBUTION WIDTH 15.4 % (12.0-16.0)
[2016-08-13 07:54] LABS: BAND NEUTROPHILS 6 %; EOSINOPHILS 3 %; EOSINOPHILS ABSOLUTE (CALC) 0.33 10/3/uL (0.0-0.53); LYMPHOCYTES 16 %; LYMPHOCYTES ABSOLUTE (CALC) 1.76 10/3/uL (0.67-4.30); MONOCYTES 14 %; MONOCYTES ABSOLUTE (CALC) 1.54 10/3/uL (0.21-1.20); NEUTROPHILS ABSOLUTE (CALC) 7.37 10/3/uL (2.02-8.40); PLATELET ESTIMATE ADQ (ADEQUATE); RBC MORPHOLOGY NORM (NORMAL); SEGMENTED NEUTROPHIL (0) 61 %; TOTAL NUCLEATED CELLS 100
[2016-08-14 06:30] LABS: BASOPHILS 0.4 %; BASOPHILS ABSOLUTE 0.04 10/3/uL (0.0-0.16); EOSINOPHILS 2.1 %; EOSINOPHILS ABSOLUTE 0.21 10/3/uL (0.0-0.53); HEMATOCRIT 24.1 % (36.0-48.0); IMMATURE GRANULOCYTES 0.4 %; IMMATURE GRANULOCYTES ABSOLUTE 0.04 10/3/uL (0.0-0.11); LYMPHOCYTES 16.2 %; LYMPHOCYTES ABSOLUTE 1.61 10/3/uL (0.67-4.30); MEAN CORPUS HGB CONC 33.2 g/dL (32.0-36.0); MEAN CORPUSCULAR HEMOGLOB 28.7 pg (26.0-34.0); MEAN CORPUSCULAR VOLUME 86.4 fL (80-100); MEAN PLATELET VOLUME 9.6 fL (9.2-13.0); MONOCYTES ABSOLUTE 1.69 10/3/uL (0.21-1.20); NEUTROPHILS 63.9 %; NEUTROPHILS ABSOLUTE 6.35 10/3/uL (2.02-8.40); PLATELET COUNT 162 10/3/uL (150-400); RBC DISTRIBUTION WIDTH 15.3 % (12.0-16.0); RED CELL COUNT 2.79 10/6/uL (4.0-5.6); WHITE BLOOD CELLS 9.9 10/3/uL (4.5-10.5)
[2016-08-14 06:31] LABS: MANUAL DIFF NO %
[2016-08-14 06:36] LABS: CALCIUM, SERUM 7.8 MG/DL (8.5-10.4); CHLORIDE, SERUM 102 MMOL/L (96-112); CO2 (CARBON DIOXIDE) 21 MMOL/L (24-34); CREATININE 0.85 MG/DL (0.55-1.02); GFR AFRICAN AMERICAN 80 ML/MIN (>=60); GFR NON AFRICAN AMERICAN 69 ML/MIN (>=60); GLUCOSE, SERUM 161 MG/DL (60-99); POTASSIUM, SERUM 4.9 MMOL/L (3.5-5.3); SODIUM, SERUM 132 MMOL/L (135-148)
[2016-08-14 06:37] LABS: BUN (BLOOD UREA NITROGEN) 38 MG/DL (6-23)
[2016-08-15 05:48] LABS: BASOPHILS 0.4 %; BASOPHILS ABSOLUTE 0.04 10/3/uL (0.0-0.16); EOSINOPHILS 2.2 %; EOSINOPHILS ABSOLUTE 0.22 10/3/uL (0.0-0.53); HEMATOCRIT 24.1 % (36.0-48.0); HEMOGLOBIN 7.9 g/dL (12.0-16.0); IMMATURE GRANULOCYTES 0.5 %; IMMATURE GRANULOCYTES ABSOLUTE 0.05 10/3/uL (0.0-0.11); LYMPHOCYTES 16.5 %; LYMPHOCYTES ABSOLUTE 1.63 10/3/uL (0.67-4.30); MEAN CORPUS HGB CONC 32.8 g/dL (32.0-36.0); MEAN CORPUSCULAR HEMOGLOB 28.7 pg (26.0-34.0); MEAN CORPUSCULAR VOLUME 87.6 fL (80-100); MEAN PLATELET VOLUME 9.5 fL (9.2-13.0); MONOCYTES ABSOLUTE 1.87 10/3/uL (0.21-1.20); NEUTROPHILS 61.4 %; NEUTROPHILS ABSOLUTE 6.04 10/3/uL (2.02-8.40); PLATELET COUNT 183 10/3/uL (150-400); RBC DISTRIBUTION WIDTH 15.7 % (12.0-16.0); RED CELL COUNT 2.75 10/6/uL (4.0-5.6); WHITE BLOOD CELLS 9.9 10/3/uL (4.5-10.5)
[2016-08-15 05:50] LABS: MANUAL DIFF NO %
[2016-08-15 05:56] LABS: CALCIUM, SERUM 8.2 MG/DL (8.5-10.4); CHLORIDE, SERUM 101 MMOL/L (96-112); CO2 (CARBON DIOXIDE) 23 MMOL/L (24-34); CREATININE 0.72 MG/DL (0.55-1.02); GFR AFRICAN AMERICAN 98 ML/MIN (>=60); GFR NON AFRICAN AMERICAN 85 ML/MIN (>=60); GLUCOSE, SERUM 150 MG/DL (60-99); POTASSIUM, SERUM 5.4 MMOL/L (3.5-5.3); SODIUM, SERUM 133 MMOL/L (135-148)
[2016-08-15 05:57] LABS: BUN (BLOOD UREA NITROGEN) 31 MG/DL (6-23)
[2016-08-16 07:22] LABS: BASOPHILS 0.6 %; BASOPHILS ABSOLUTE 0.08 10/3/uL (0.0-0.16); EOSINOPHILS ABSOLUTE 0.26 10/3/uL (0.0-0.53); IMMATURE GRANULOCYTES 1.3 %; IMMATURE GRANULOCYTES ABSOLUTE 0.17 10/3/uL (0.0-0.11); LYMPHOCYTES 18.5 %; LYMPHOCYTES ABSOLUTE 2.46 10/3/uL (0.67-4.30); MEAN CORPUS HGB CONC 33.2 g/dL (32.0-36.0); MEAN CORPUSCULAR VOLUME 87.3 fL (80-100); MEAN PLATELET VOLUME 9.2 fL (9.2-13.0); MONOCYTES 19.4 %; MONOCYTES ABSOLUTE 2.57 10/3/uL (0.21-1.20); NEUTROPHILS 58.2 %; NEUTROPHILS ABSOLUTE 7.73 10/3/uL (2.02-8.40); RBC DISTRIBUTION WIDTH 16.6 % (12.0-16.0); WHITE BLOOD CELLS 13.3 10/3/uL (4.5-10.5)
[2016-08-16 07:23] LABS: HEMATOCRIT 29.5 % (36.0-48.0); HEMOGLOBIN 9.8 g/dL (12.0-16.0); PLATELET COUNT 287 10/3/uL (150-400); RED CELL COUNT 3.38 10/6/uL (4.0-5.6)
[2016-08-16 07:36] LABS: BUN (BLOOD UREA NITROGEN) 22 MG/DL (6-23); CALCIUM, SERUM 8.7 MG/DL (8.5-10.4); CHLORIDE, SERUM 106 MMOL/L (96-112); CO2 (CARBON DIOXIDE) 24 MMOL/L (24-34); CREATININE 0.65 MG/DL (0.55-1.02); GFR AFRICAN AMERICAN 104 ML/MIN (>=60); GFR NON AFRICAN AMERICAN 90 ML/MIN (>=60); GLUCOSE, SERUM 61 MG/DL (60-99); POTASSIUM, SERUM 4.5 MMOL/L (3.5-5.3); SODIUM, SERUM 140 MMOL/L (135-148)
[2016-09-22] MEDS ORDERED: AMITIZA24 PO (13:37)
[2016-09-22] MEDS ORDERED: VITC500 PO (13:38)
[2017-02-02] MEDS ORDERED: SANTYL TOP (12:32)
[2017-02-02] MEDS ORDERED: DSS PO (12:33)
[2017-02-02] MEDS ORDERED: IODOSORB TOP (12:33)
[2017-02-02] MEDS ORDERED: NORCO1 TAB PO (12:35)
[2017-02-02] MEDS ORDERED: RIFADIN 300 MG300 MG PO (12:36)
[2017-02-02] MEDS ORDERED: VIBRATAB100 MG PO (12:36)
== END 2016-08-17 12:11 | DRG 234 ==
LOC: ER 03:10 → CDU1 04:55 → CDU2 06:27 → 5NO 08-07 17:28 → SDC/OF 08-10 10:23 → CVICU 08-10 15:25 → 5NO 08-13 13:19
PROVIDERS: Anesthesiology; Hospitalist; Internal Medicine; Internal Medicine Cardiovascular Disease; Nurse Practitioner Family; Specialist; Thoracic Surgery (Cardiothoracic Vascular Surgery)
PROC: 4A023N7 Measurement of Cardiac Sampling and Pressure, Left Heart, Percutaneous Approach (ICD-10-PCS; principal; 2016-08-06)
PROC: B2111ZZ Fluoroscopy of Multiple Coronary Arteries using Low Osmolar Contrast (ICD-10-PCS; 2016-08-06)
PROC: 0PH000Z Insertion of Rigid Plate Internal Fixation Device into Sternum, Open Approach (ICD-10-PCS; 2016-08-10)
PROC: 5A1221Z Performance of Cardiac Output, Continuous (ICD-10-PCS; 2016-08-10)
PROC: B246ZZ4 Ultrasonography of Right and Left Heart, Transesophageal (ICD-10-PCS; 2016-08-10)
PROC: 021109W Bypass Coronary Artery, Two Arteries from Aorta with Autologous Venous Tissue, Open Approach (ICD-10-PCS; 2016-08-10 13:30)
PROC: 0210099 Bypass Coronary Artery, One Artery from Left Internal Mammary with Autologous Venous Tissue, Open Approach (ICD-10-PCS; 2016-08-10 13:30)
DX: I21.4 Non-ST elevation (NSTEMI) myocardial infarction (principal); E11.65 Type 2 diabetes mellitus with hyperglycemia; D69.6 Thrombocytopenia, unspecified; J44.9 Chronic obstructive pulmonary disease, unspecified; R13.19 Other dysphagia; D62 Acute posthemorrhagic anemia; I25.10 Atherosclerotic heart disease of native coronary artery without angina pectoris; I44.4 Left anterior fascicular block; Z88.0 Allergy status to penicillin; F41.9 Anxiety disorder, unspecified; Q05.9 Spina bifida, unspecified; Z79.899 Other long term (current) drug therapy; Z99.3 Dependence on wheelchair; G89.4 Chronic pain syndrome; Z85.3 Personal history of malignant neoplasm of breast; I25.2 Old myocardial infarction; Z88.8 Allergy status to other drugs, medicaments and biological substances; Z88.2 Allergy status to sulfonamides; Z79.82 Long term (current) use of aspirin; Z79.4 Long term (current) use of insulin; I10 Essential (primary) hypertension; E66.9 Obesity, unspecified; R53.81 Other malaise; Z68.31 Body mass index [BMI] 31.0-31.9, adult; Z79.891 Long term (current) use of opiate analgesic
CPT/HCPCS: 36415; 71010; 71020; 71250; 80048; 80053; 80061; 80069; 81001; 82330; 82803; 82805; 82947; 82962; 83036; 83735; 84132; 84295; 84460; 84484; 85014; 85018; 85025; 85049; 85347; 85384; 85610; 85730; 86850; 86900; 86901; 86920; 87641; 92610-GN; 93005; 93306; 93312; 93320; 93325; 93458; 93880; 94002; 94640; 94660; 94770; 97116-GP; 97162-GP; 97164-GP; 97166-GO; 97530-GP; 99152; 99285; A9270-GY; C1713; C1769; C1781; C1887; C1894; G0365; G8978-CL-GP; G8979-CK-GP; G8987-CK-GO; G8988-CJ-GO; G8996-CJ-GN; G8997-CJ-GN; G8998-CJ-GN; J0690; J1170; J1450; J1644; J2150; J2250; J2370; J2405; J2440; J2720; J3010; J3370; J3475; J3480; P9045; P9047; Q9967

== ENCOUNTER 2016-09-22 18:43 | Inpatient (IN) | payer MEDICARE, BC ==
--- NOTE | ~2016-09-22 | CN ---
Consultation Report [facility] [address] [place]. [address] NAME: MASSIMO TOUSSAINT : 46 STATUS : ADM IN PAT#: [id number] AGE: 71 ADM/REG DATE : 09/22/16 MR#: [id number] REPORT SERV DATE: 09/23/16 DICTATED BY: JUAN PARKS DATE: 09/22/16 REPORT STATUS : Draft TRANSCRIBED BY: MEDARDO DATE: 09/22/16 CONSULTATION NOTE DATE OF CONSULTATION: 09/22/2016 TIME OF CONSULTATION: 2015 hours. REASON FOR CONSULTATION: Gross hematuria. HISTORY OF PRESENT ILLNESS: Ms. Toussaint is a 71-year-old white female with a history of spina bifida, who had a cystectomy and ileal conduit done by Dr. Peter Romero and Dr. Rah Rowley many years ago. She has been stable and had no problems; however, stated a couple of months back, she began to pass a little blood in her urine, which resolve spontaneously. She began bleeding again today prompting her to go to [facility] at that time. She described the blood as bright red. She was not febrile. She was not complaining of any back pain or flank pain to suggest acute obstruction. Her lab was obtained, which revealed a hemoglobin and hematocrit of 7.5/25.9 with a white count of 3600 and 120,000 platelets. Her electrolytes, BUN and creatinine were normal. She does state that she has had a recent coronary artery bypass graft and is currently on Plavix. PHYSICAL EXAMINATION: GENERAL: The patient is awake and alert. VITAL SIGNS: All vital signs were stable. She is afebrile. CHEST: Clear. ABDOMEN: Soft without masses. There is no rebound. There is some peristomal tenderness. There is a right lower quadrant ileal conduit, which is pink and viable and draining orangish/pinkish blood-tinged urine. I have reviewed the CT scan, a copy of which is on the hospital chart. It does not show any acute issues. There is a renal cyst, which has apparently been known to be present on the right side. IMPRESSION: Urinary diversion with gross hematuria, questionable etiology (question Plavix related). PLAN: Follow H and H overnight. Dr. Romero will return on 09/23/2012. Thank you very much for the consult. MS/MODL Juan Parks M.D. Consultation Report [address] [place]. [address] NAME: MASSIMO TOUSSAINT : 46 STATUS : ADM IN PAT#: [id number] AGE: 71 ADM/REG DATE : 09/22/16 MR#: [id number] REPORT SERV DATE: 09/23/16 DICTATED BY: JUAN PARKS DATE: 09/22/16 REPORT STATUS : Draft TRANSCRIBED BY: MEDARDO DATE: 09/22/16 / [id number] CC: Abraham Headley MD
--- NOTE | ~2016-09-22 | DS ---
Discharge Summary [facility] [address] [place]. [address] NAME: MASSIMO TOUSSAINT : 47 STATUS : DIS IN PAT#: [id number] AGE: 71 ADM/REG DATE : 09/22/16 MR#: [id number] REPORT SERV DATE: 09/26/16 DICTATED BY: HOANG MULLEN DATE: 09/25/16 REPORT STATUS : Draft TRANSCRIBED BY: MODL DATE: 09/25/16 ADMISSION DATE: 09/22/2016 DISCHARGE DATE: 09/25/2016 The patient is a 71-year-old female with history of coronary artery disease status post CABG x3, diabetes type 2, neurogenic bladder with resultant ileostomy conduit who was transferred from the [facility] over to [facility] for further management. For further details, please refer to H and P dictated by Dr. Keller on 09/22/2016. Briefly, the patient presented to the [facility] Emergency Room with complaint of blood in her urine. Her primary urologist Dr. Romero's office was consulted, however, his partner recommended the patient be transferred to [facility] for further evaluation and management. The patient was transferred from the hospital service at [facility] over to [facility]. Prior to her being transferred, the patient received 1 unit of packed red blood cells. Upon arrival at [facility], the patient was evaluated by Urology, per their standpoint likely etiology of her gross hematuria was due to antiplatelet therapy which the patient was currently on. Her Plavix and aspirin were subsequently discontinued. Per conversation between the cardiology and urology as noted in Dr. Romero's note, the agreement was for Plavix to be discontinued at this point, and the patient should be placed on aspirin alone. Status post discontinuing Plavix, the patient's symptoms have resolved. The patient is cleared from Urology standpoint for discharge. Since her presentation here in the [facility], the patient has remained hemodynamically stable. Given completion of management by Urology and given resolution of patient's symptoms, she will therefore be discharged today to follow up with her primary care physician. Plan has been discussed with the patient who voices understanding and is agreeable with this plan. DISCHARGE DIAGNOSES: 1. Gross hematuria. 2. Coronary artery disease status post CABG x3. 3. Diabetes type 2. 4. Neurogenic bladder. 5. Gastroesophageal reflux disease. 6. Chronic obstructive pulmonary disease. DISCHARGE EXAM: VITAL SIGNS: Blood pressure 152/66 with a pulse of 90, respiration 14, O2 saturation 96% on room air. GENERAL: The patient lying in bed, in no acute distress. Appears stated age. Speaking in full sentences. HEENT: Normocephalic, atraumatic. Extraocular motors intact. Moist oral mucosa. NECK: Trachea midline and symmetric. No abnormalities noted. No JVD present. CHEST: Nontender to palpation. Midline scar noted. CARDIOVASCULAR: Regular rate and rhythm, S1, S2. No murmurs, rubs, or gallops. LUNGS: Clear to auscultation bilaterally. No added breath sounds. ABDOMEN: Obese, positive bowel sounds. Nontender. Nondistended. Her ileostomy was noted, tissue around bag appears healthy and pink. NEUROLOGIC: Alert and oriented x3. No focal deficits appreciated. Discharge Summary [address] [address] NAME: MASSIMO TOUSSAINT : 46 STATUS : DIS IN PAT#: [id number] AGE: 71 ADM/REG DATE : 09/22/16 MR#: [id number] REPORT SERV DATE: 09/26/16 DICTATED BY: HOANG MULLEN DATE: 09/25/16 REPORT STATUS : Draft TRANSCRIBED BY: MEDARDO DATE: 09/25/16 DISCHARGE MEDICATIONS: Outpatient medications were continued with no addition of any medications, however, Plavix was discontinued from her medication list. IMAGING: The patient had a CT abdomen and pelvis performed on 09/23/2016. Please refer to the imaging study for further details. DISPOSITION: The patient will be discharged home. ACTIVITY: As tolerated. DIET: Regular. Restricted diet and diabetic diet. Greater than 30 minutes was spent coordinating care, coordinating discharge, dictation of note, writing prescription, and general discharge planning. BRIDGETTE/MEDARDO Hoang Mullen MD / [id number] CC: MD Fernando Blakely M.D.
[~2016-09-22 18:43] MED LIST changes: +AMITIZA24 PO; +D 5000 PO; +HIPREX1 GM PO
[2016-09-22] MEDS ORDERED: OXYCOD PO (20:33)
[2016-09-22] MEDS ORDERED: PRIN2.5 PO (20:33)
[2016-09-22] MEDS ORDERED: PLAVIX PO (20:34)
[2016-09-22] MEDS ORDERED: LIPITOR40 PO (20:34)
[2016-09-22] MEDS ORDERED: LOP25 PO (20:38)
[2016-09-22] MEDS ORDERED: PRIN10 PO (20:39)
[2016-09-22] MEDS ORDERED: ZINC220C PO (20:39)
[2016-09-22] MEDS ORDERED: NTG150 SL (20:39)
[2016-09-22 21:01] LABS: HEMATOCRIT 29.9 % (36.0-48.0); HEMOGLOBIN 8.9 g/dL (12.0-16.0)
[2016-09-22 21:03] LABS: PARTIAL THROMBO TIME 29.1 SEC (22.5-37.2)
[2016-09-22 21:10] LABS: PROTIME (NOT ORD) 22.6 SEC (12.0-14.5)
[2016-09-22 21:27] LABS: ASCORBIC ACID (UR NOT ORDER) NEG (NEG); BILIRUBIN, URINE NEGATIVE (NEG); KETONE, URINE NEGATIVE (NEG); LEUKOCYTE ESTERASE(NOT OR MOD (NEG); WBC (NOT ORDERED) (RFLEX) 27 (0-5)
[2016-09-23 04:18] LABS: BASOPHILS 0.6 %; BASOPHILS ABSOLUTE 0.02 10/3/uL (0.0-0.16); EOSINOPHILS 3.1 %; EOSINOPHILS ABSOLUTE 0.11 10/3/uL (0.0-0.53); HEMATOCRIT 28.1 % (36.0-48.0); HEMOGLOBIN 8.7 g/dL (12.0-16.0); LYMPHOCYTES 31.1 %; LYMPHOCYTES ABSOLUTE 1.12 10/3/uL (0.67-4.30); MEAN CORPUSCULAR HEMOGLOB 24.5 pg (26.0-34.0); MEAN CORPUSCULAR VOLUME 79.2 fL (80-100); MEAN PLATELET VOLUME 9.6 fL (9.2-13.0); MONOCYTES 13.9 %; NEUTROPHILS 51.3 %; NEUTROPHILS ABSOLUTE 1.85 10/3/uL (2.02-8.40); PLATELET COUNT 107 10/3/uL (150-400); RBC DISTRIBUTION WIDTH 16.4 % (12.0-16.0); RED CELL COUNT 3.55 10/6/uL (4.0-5.6); WHITE BLOOD CELLS 3.6 10/3/uL (4.5-10.5)
[2016-09-23 04:20] LABS: MANUAL DIFF NO %
[2016-09-23 04:53] LABS: A/G RATIO 0.6 (0.7-1.9); ALBUMIN 2.5 G/DL (3.5-5.0); ALKALINE PHOSPHATASE 115 U/L (45-117); BUN (BLOOD UREA NITROGEN) 8 MG/DL (6-23); CALCIUM, SERUM 8.2 MG/DL (8.5-10.4); CHLORIDE, SERUM 113 MMOL/L (96-112); CO2 (CARBON DIOXIDE) 21 MMOL/L (24-34); GFR AFRICAN AMERICAN 114 ML/MIN (>=60); GFR NON AFRICAN AMERICAN 98 ML/MIN (>=60); GLOBULIN 4.4 G/DL (2.5-4.1); GLUCOSE, SERUM 150 MG/DL (60-99); POTASSIUM, SERUM 3.7 MMOL/L (3.5-5.3); SGOT(AST) 26 U/L (5-40); SGPT(ALT) 14 U/L (5-65); SODIUM, SERUM 145 MMOL/L (135-148); TOTAL BILIRUBIN 0.5 MG/DL (0-1.2); TOTAL PROTEIN 6.9 G/DL (6.0-8.5)
[2016-09-23 14:26] LABS: HEMATOCRIT 29.2 % (36.0-48.0); HEMOGLOBIN 8.9 g/dL (12.0-16.0)
[2016-09-23 20:04] LABS: HEMOGLOBIN 7.9 g/dL (12.0-16.0)
[2016-09-23 20:05] LABS: HEMATOCRIT 25.5 % (36.0-48.0)
[2016-09-24 05:37] LABS: BASOPHILS 0.9 %; BASOPHILS ABSOLUTE 0.03 10/3/uL (0.0-0.16); EOSINOPHILS 5.8 %; EOSINOPHILS ABSOLUTE 0.19 10/3/uL (0.0-0.53); HEMATOCRIT 26.9 % (36.0-48.0); HEMOGLOBIN 8.3 g/dL (12.0-16.0); LYMPHOCYTES 30.6 %; MEAN CORPUS HGB CONC 30.9 g/dL (32.0-36.0); MEAN CORPUSCULAR HEMOGLOB 24.6 pg (26.0-34.0); MEAN CORPUSCULAR VOLUME 79.8 fL (80-100); MEAN PLATELET VOLUME 9.5 fL (9.2-13.0); MONOCYTES 14.7 %; MONOCYTES ABSOLUTE 0.48 10/3/uL (0.21-1.20); NEUTROPHILS ABSOLUTE 1.57 10/3/uL (2.02-8.40); PLATELET COUNT 107 10/3/uL (150-400); RBC DISTRIBUTION WIDTH 16.5 % (12.0-16.0); RED CELL COUNT 3.37 10/6/uL (4.0-5.6); WHITE BLOOD CELLS 3.3 10/3/uL (4.5-10.5)
[2016-09-24 05:39] LABS: MANUAL DIFF NO %
[2016-09-24 06:02] LABS: A/G RATIO 0.5 (0.7-1.9); ALBUMIN 2.3 G/DL (3.5-5.0); BUN (BLOOD UREA NITROGEN) 8 MG/DL (6-23); CALCIUM, SERUM 8.2 MG/DL (8.5-10.4); CHLORIDE, SERUM 111 MMOL/L (96-112); CO2 (CARBON DIOXIDE) 25 MMOL/L (24-34); CREATININE 0.56 MG/DL (0.55-1.02); GFR AFRICAN AMERICAN 109 ML/MIN (>=60); GFR NON AFRICAN AMERICAN 94 ML/MIN (>=60); GLOBULIN 4.3 G/DL (2.5-4.1); GLUCOSE, SERUM 141 MG/DL (60-99); POTASSIUM, SERUM 3.7 MMOL/L (3.5-5.3); SGOT(AST) 27 U/L (5-40); SGPT(ALT) 15 U/L (5-65); SODIUM, SERUM 145 MMOL/L (135-148); TOTAL BILIRUBIN 0.7 MG/DL (0-1.2); TOTAL PROTEIN 6.6 G/DL (6.0-8.5)
[2016-09-24 06:04] LABS: ALKALINE PHOSPHATASE 98 U/L (45-117)
[2016-09-25 06:05] LABS: BASOPHILS 0.5 %; BASOPHILS ABSOLUTE 0.02 10/3/uL (0.0-0.16); EOSINOPHILS 4.8 %; EOSINOPHILS ABSOLUTE 0.21 10/3/uL (0.0-0.53); HEMATOCRIT 27.8 % (36.0-48.0); HEMOGLOBIN 8.6 g/dL (12.0-16.0); IMMATURE GRANULOCYTES 0.2 %; IMMATURE GRANULOCYTES ABSOLUTE 0.01 10/3/uL (0.0-0.11); LYMPHOCYTES 28.4 %; LYMPHOCYTES ABSOLUTE 1.24 10/3/uL (0.67-4.30); MANUAL DIFF NO %; MEAN CORPUS HGB CONC 30.9 g/dL (32.0-36.0); MEAN CORPUSCULAR HEMOGLOB 24.4 pg (26.0-34.0); MEAN PLATELET VOLUME 9.8 fL (9.2-13.0); MONOCYTES 11.9 %; MONOCYTES ABSOLUTE 0.52 10/3/uL (0.21-1.20); NEUTROPHILS 54.2 %; NEUTROPHILS ABSOLUTE 2.36 10/3/uL (2.02-8.40); PLATELET COUNT 126 10/3/uL (150-400); RBC DISTRIBUTION WIDTH 16.9 % (12.0-16.0); RED CELL COUNT 3.52 10/6/uL (4.0-5.6); WHITE BLOOD CELLS 4.4 10/3/uL (4.5-10.5)
[2016-09-25 06:20] LABS: A/G RATIO 0.6 (0.7-1.9); ALBUMIN 2.5 G/DL (3.5-5.0); BUN (BLOOD UREA NITROGEN) 9 MG/DL (6-23); CHLORIDE, SERUM 108 MMOL/L (96-112); CO2 (CARBON DIOXIDE) 27 MMOL/L (24-34); CREATININE 0.56 MG/DL (0.55-1.02); GFR AFRICAN AMERICAN 109 ML/MIN (>=60); GFR NON AFRICAN AMERICAN 94 ML/MIN (>=60); GLOBULIN 4.5 G/DL (2.5-4.1); POTASSIUM, SERUM 3.5 MMOL/L (3.5-5.3); SGOT(AST) 22 U/L (5-40); SGPT(ALT) 17 U/L (5-65); SODIUM, SERUM 144 MMOL/L (135-148); TOTAL BILIRUBIN 0.7 MG/DL (0-1.2)
[2016-09-25 06:21] LABS: ALKALINE PHOSPHATASE 110 U/L (45-117); GLUCOSE, SERUM 67 MG/DL (60-99)
[2017-02-02] MEDS ORDERED: SANTYL TOP (12:32)
[2017-02-02] MEDS ORDERED: IODOSORB TOP (12:33)
[2017-02-02] MEDS ORDERED: DSS PO (12:33)
[2017-02-02] MEDS ORDERED: NORCO1 TAB PO (12:35)
[2017-02-02] MEDS ORDERED: RIFADIN 300 MG300 MG PO (12:36)
[2017-02-02] MEDS ORDERED: VIBRATAB100 MG PO (12:36)
== END 2016-09-25 14:45 | disposition home or self-care (01) | DRG 696 ==
LOC: 7NO 18:43
PROVIDERS: Hospitalist
DX: R31.0 Gross hematuria (principal); J44.9 Chronic obstructive pulmonary disease, unspecified; I25.10 Atherosclerotic heart disease of native coronary artery without angina pectoris; K21.9 Gastro-esophageal reflux disease without esophagitis; N31.9 Neuromuscular dysfunction of bladder, unspecified; T45.525A Adverse effect of antithrombotic drugs, initial encounter; Q05.9 Spina bifida, unspecified; I25.2 Old myocardial infarction; Z79.82 Long term (current) use of aspirin; Z93.6 Other artificial openings of urinary tract status; Z95.1 Presence of aortocoronary bypass graft; Z88.6 Allergy status to analgesic agent; Z88.2 Allergy status to sulfonamides; Z88.1 Allergy status to other antibiotic agents; Z88.5 Allergy status to narcotic agent; Z88.8 Allergy status to other drugs, medicaments and biological substances; Z79.4 Long term (current) use of insulin; Z79.899 Other long term (current) drug therapy; Z79.01 Long term (current) use of anticoagulants
CPT/HCPCS: 36415; 74176; 74177; 80053; 81001; 82962; 83735; 84484; 85014; 85018; 85025; 85610; 85730; 86850; 86900; 86901; 86920; 87077; 87086; 87186; 93005; 99291; A9270-GY; P9016

== ENCOUNTER 2016-10-07 11:15 | Day surgery (SDC) | payer MEDICARE, BC ==
--- NOTE | ~2016-10-07 | EGD ---
EGD REPORT [facility] [address] [address] NAME: MASSIMO TOUSSAINT : [birth year] STATUS : REG [facility]#: [id number] AGE: 71 ADM/REG DATE : 10/07/16 MR#: [id number] REPORT SERV DATE: 10/07/16 DICTATED BY: SUNG JORGE DATE: 10/07/16 REPORT STATUS : Draft TRANSCRIBED BY: [facility] DATE: 10/07/16 Endoscopy Center Patient Name: Massimo Toussaint Date of : 1945 Attending MD: SUNG JORGE MD Procedure Date No Time: 10/07/2016 Procedure: Upper GI endoscopy Indications: Iron deficiency anemia, Gastro-esophageal reflux disease Referring MD: MEGHNA JOSE MD Medicines: See the Anesthesia note for documentation of the administered medications Complications: No immediate complications. Procedure: Pre-Anesthesia Assessment: - ASA Grade Assessment: IV - A patient with severe systemic disease that is a constant threat to life. After obtaining informed consent, the endoscope was passed under direct vision. Throughout the procedure, the patient's blood pressure, pulse, and oxygen saturations were monitored continuously. The GIF H190 [id number] was introduced through the mouth, and advanced to the second part of duodenum. The upper GI endoscopy was accomplished without difficulty. The patient tolerated the procedure well. Findings: The 2nd part of the duodenum was normal. Biopsies were taken with a cold forceps for histology. Mild inflammation was found in the gastric antrum. Biopsies were taken with a cold forceps for histology. The cardia and gastric fundus were normal on retroflexion. A small hiatus hernia was present. Impression: - Normal 2nd part of the duodenum. Biopsied. - Gastritis. Biopsied. - Hiatus hernia. Recommendation: - Patient has a contact number available for emergencies. The signs and symptoms of potential delayed complications were discussed with the patient. Return to normal activities tomorrow. Written discharge instructions were provided to the patient. - Regular diet. - Continue present medications. - FOR YOUR BIOPSY RESULTS: Please go to [email or web address] and register to receive your EGD REPORT [address] [address] NAME: MASSIMO TOUSSAINT : [birth year] STATUS : REG [facility] PAT#: [id number] AGE: 71 ADM/REG DATE : 10/07/16 MR#: [id number] REPORT SERV DATE: 10/07/16 DICTATED BY: SUNG JORGE DATE: 10/07/16 REPORT STATUS : Draft TRANSCRIBED BY: [employer] SERVICES DATE: 10/07/16 results via the portal. Your biopsy results will be posted there in about 7 to 10 days. IF you do not see result in 10 days, call office. Procedure Code(s): --- Professional --- 16576, Esophagogastroduodenoscopy, flexible, transoral; with biopsy, single or multiple Diagnosis Code(s): --- Professional --- K29.70, Gastritis, unspecified, without bleeding K44.9, Diaphragmatic hernia without obstruction or gangrene D50.9, Iron deficiency anemia, unspecified K21.9, Gastro-esophageal reflux disease without esophagitis CPT copyright 2013 [employer]. All rights reserved. The codes documented in this report are preliminary and upon video intern review may be revised to meet current compliance requirements. Sung Jorge MD SUNG JORGE MD 10/07/2016 1:17 PM This report has been signed electronically. Number of Addenda: 0 Note Initiated On: 10/07/2016 12:59 PM Scope Withdrawal Time 0 hours 0 minutes 0 seconds [address] [id number]
--- NOTE | ~2016-10-07 | EGD ---
EGD REPORT [facility] [address] [address] NAME: MASSIMO TOUSSAINT : [birth year] STATUS : REG [facility]#: [id number] AGE: 71 ADM/REG DATE : 10/07/16 MR#: [id number] REPORT SERV DATE: 10/07/16 DICTATED BY: SUNG JORGE DATE: 10/07/16 REPORT STATUS : Draft [facility] DATE: 10/07/16 Endoscopy Center Patient Name: Massimo Toussaint Date of : 1945 Attending MD: SUNG JORGE MD Procedure Date No Time: 10/07/2016 Procedure: Colonoscopy Indications: This is the patient's first colonoscopy, Hematochezia, Iron deficiency anemia Referring MD: MEGHNA JOSE MD Medicines: See the Anesthesia note for documentation of the administered medications Complications: No immediate complications. Procedure: Pre-Anesthesia Assessment: - ASA Grade Assessment: IV - A patient with severe systemic disease that is a constant threat to life. After I obtained informed consent, the scope was passed under direct vision. Throughout the procedure, the patient's blood pressure, pulse, and oxygen saturations were monitored continuously. The PCF [id number] was introduced through the anus and advanced to the cecum, identified by appendiceal orifice and ileocecal valve. The colonoscopy was performed without difficulty. The patient tolerated the procedure well. The quality of the bowel preparation was fair. Findings: The perianal and digital rectal examinations were normal. Internal hemorrhoids were found during retroflexion and were small. Some scattered brown fecal debris Impression: - Internal hemorrhoids. - Some scattered brown fecal debris Recommendation: - Patient has a contact number available for emergencies. The signs and symptoms of potential delayed complications were discussed with the patient. Return to normal activities tomorrow. Written discharge instructions were provided to the patient. - Regular diet. - Continue present medications. - Repeat colonoscopy in 1 year because the bowel preparation was suboptimal. Procedure Code(s): --- Professional --- EGD REPORT [address] [place] [address] NAME: MASSIMO TOUSSAINT : [birth year] STATUS : REG [facility]#: [id number] AGE: 71 ADM/REG DATE : 10/07/16 MR#: [id number] REPORT SERV DATE: 10/07/16 DICTATED BY: SUNG JORGE DATE: 10/07/16 REPORT STATUS : Draft TRANSCRIBED BY: [employer] DATE: 10/07/16 19457, Colonoscopy, flexible, proximal to splenic flexure; diagnostic, with or without collection of specimen(s) by brushing or washing, with or without colon decompression (separate procedure) Diagnosis Code(s): --- Professional --- K64.8, Other hemorrhoids K92.1, Melena D50.9, Iron deficiency anemia, unspecified CPT copyright 2013 [employer]. All rights reserved. The codes documented in this report are preliminary and upon scrap hooker review may be revised to meet current compliance requirements. Sung Jorge MD SUNG JORGE MD 10/07/2016 1:38 PM This report has been signed electronically. Number of Addenda: 0 Note Initiated On: 10/07/2016 12:54 PM Scope Withdrawal Time 0 hours 10 minutes 54 seconds [address] [facility] [place] [address]
[~2016-10-07 11:15] MED LIST changes: +LIPITOR40 PO; +NTG150 SL; +OXYCOD PO; +PLAVIX PO; +PRIN2.5 PO; +ZINC220C PO
[2017-02-02] MEDS ORDERED: SANTYL TOP (12:32)
[2017-02-02] MEDS ORDERED: DSS PO (12:33)
[2017-02-02] MEDS ORDERED: IODOSORB TOP (12:33)
[2017-02-02] MEDS ORDERED: NORCO1 TAB PO (12:35)
[2017-02-02] MEDS ORDERED: RIFADIN 300 MG300 MG PO (12:36)
[2017-02-02] MEDS ORDERED: VIBRATAB100 MG PO (12:36)
== END 2016-10-07 23:59 | disposition home or self-care (01) ==
LOC: DMU 11:15
PROVIDERS: Internal Medicine Gastroenterology
PROC: 0DB68ZX Excision of Stomach, Via Natural or Artificial Opening Endoscopic, Diagnostic (ICD-10-PCS; 2016-10-07)
PROC: 0DJD8ZZ Inspection of Lower Intestinal Tract, Via Natural or Artificial Opening Endoscopic (ICD-10-PCS; principal; 2016-10-07 13:00)
PROC: 0DB98ZX Excision of Duodenum, Via Natural or Artificial Opening Endoscopic, Diagnostic (ICD-10-PCS; 2016-10-07 13:00)
DX: K29.50 Unspecified chronic gastritis without bleeding (principal); K64.8 Other hemorrhoids; K44.9 Diaphragmatic hernia without obstruction or gangrene; D50.9 Iron deficiency anemia, unspecified; K21.9 Gastro-esophageal reflux disease without esophagitis; I10 Essential (primary) hypertension; E78.00 Pure hypercholesterolemia, unspecified; G47.33 Obstructive sleep apnea (adult) (pediatric); E11.9 Type 2 diabetes mellitus without complications; F41.9 Anxiety disorder, unspecified; M19.90 Unspecified osteoarthritis, unspecified site; G62.9 Polyneuropathy, unspecified; I25.2 Old myocardial infarction; F32.9 Major depressive disorder, single episode, unspecified; Z85.3 Personal history of malignant neoplasm of breast; Z88.8 Allergy status to other drugs, medicaments and biological substances; Z88.2 Allergy status to sulfonamides; Z88.6 Allergy status to analgesic agent; Z88.4 Allergy status to anesthetic agent; Z88.5 Allergy status to narcotic agent; Z96.642 Presence of left artificial hip joint; Z90.49 Acquired absence of other specified parts of digestive tract; Z79.4 Long term (current) use of insulin; Z90.710 Acquired absence of both cervix and uterus; Z90.13 Acquired absence of bilateral breasts and nipples; Z98.890 Other specified postprocedural states; Z79.899 Other long term (current) drug therapy
CPT/HCPCS: 82962; 88305; 88342